=== PATIENT | female | born 1965 | race Caucasian/White ===

== ENCOUNTER → 2016-06-10 10:49 | Outpatient (CLI) | payer MEDICARE ==
[2016-01-15 11:12] VITALS: BMI 39.3
[~2016-06-10 10:49] MED LIST: ALBUTEROL2.5 MG/3 M UPD; ASPIRIN325 MG PO; BAYER CHEWABLE81 MG PO; CHRONULAC30 ML PO; FLUTICASONE PRO16 GM NASAL; IBUPROFEN800 MG PO; IPRAT-ALBUT 0.5-3 ML UPD; K-DUR20 MEQ PO; LASIX40 MG PO; LEVAQUIN500 MG PO; LUNESTA3 MG PO; METOPROLOL TART50 MG PO; MUCINEX600 MG PO; OMEPRAZOLE20 M1 PO; OMNICEF300 MG PO; PHENERGAN25 M1 PO; PREVACID30 MG PO; PROAIR HFA8.5 GM INH; PROTONIX40 MG PO; ROBAXIN500 MG PO; SINGULAIR10 MG PO; SYMBICORT 16010.2 GM; SYNTHROID25 MCG PO; ULTRAM50 MG PO; VITAMIN D31000 UNIT PO; ZANAFLEX4 MG PO; ZITHROMAX250 MG PO; ZOLOFT50 MG PO
== END | disposition home or self-care (01) ==
LOC: D.RT 10:49
DX: J45.909 Unspecified asthma, uncomplicated (principal)

== ENCOUNTER → 2016-08-27 13:14 | Outpatient (CLI) | payer MEDICARE ==
[2016-01-15 11:12] VITALS: BMI 39.3
== END | disposition home or self-care (01) ==
LOC: D.RAD 13:00
DX: J44.9 Chronic obstructive pulmonary disease, unspecified (principal)

== ENCOUNTER → 2016-09-18 09:22 | Outpatient (CLI) | payer MEDICARE ==
[2016-01-15 11:12] VITALS: BMI 39.3
[2016-09-18 10:20] LABS: CREATININE - SERUM 1.1 mg/dL (0.6-1.3)
== END | disposition home or self-care (01) ==
LOC: D.CT 09:22
PROVIDERS: Internal Medicine Pulmonary Disease
DX: R91.1 Solitary pulmonary nodule (principal)

== ENCOUNTER 2016-10-02 09:01 | Outpatient (CLI) | payer MEDICARE ==
[~2016-10-02] VITALS: Ht 162.6 cm; Wt 109.1 kg
[2016-10-02] MEDS ORDERED: GLIMEPIRIDE2 MG PO (10:02)
[2016-10-02] MEDS ORDERED: LEVEMIR INJ FLE (10:02)
[2016-10-02] MEDS ORDERED: ZANAFLEX4 MG PO (10:03)
[2016-10-02] MEDS ORDERED: TOPAMAX50 MG PO (10:03)
[2016-10-02] MEDS ORDERED: K-DUR20 MEQ PO (10:04)
[2016-10-02] MEDS ORDERED: FUROSEMIDE40 MG PO (10:04)
[2016-10-02 10:15] VITALS: BP 128/63; Ht 162.6 cm; Wt 109.1 kg
[2016-10-02 10:35] LABS: BASOPHILS 0.5 % (0-2); EOSINOPHILS 5.5 % (0-7); HEMOGLOBIN 12.4 g/dL (12-16); IMMATURE GRANULOCYTES 0.3 % (0-5); MCH 29.4 pg (26.0-34.0); MCHC 32.6 g/dL (31.0-37.0); MEAN PLATELET VOLUME 10.5 fL (7.4-10.4); MONOCYTES 14.2 % (2-11); NEUTROPHILS 68.5 % (40-80); PLATELET COUNT 64 10x3/uL (130-400); RBC 4.22 10x6/uL (4.00-5.40); RDW 17.6 % (11.5-14.5); WBC 6.4 10x3/uL (4.8-10.8)
[2016-10-02 10:47] LABS: APTT 30.6 SECONDS (22.8-39.4); INR 1.2 (0.85-1.17); PROTIME 15.1 SECONDS (11.6-15.0)
--- NOTE | 2016-10-02 10:53 | NUR ---
1025-IV SITED TO R CHEST WITH 24G ANGIOCATH. 1046-IV PREOPS GIVEN, POSITIVE BLOOD RETURN TO IV PRIOR TO ADMINISTRATION. RT AT BEDSIDE.
[2016-10-02 11:20] LABS: PLATELET ESTIMATE DECREASED
--- NOTE | 2016-10-02 14:51 | NUR ---
1345 IV DC WITH CATHER TIP INTACT
--- NOTE | 2016-10-02 14:59 | NUR ---
1325 ULTRAM 50 MG GIVEN FOR BACK PAIN
[2016-10-03 18:07] LABS: ACID FAST SMEAR Negative (()); AFB SPECIMEN PROCESSING Concentration (())
[2016-10-05 11:10] LABS: FUNGUS STAIN Final report (())
== END 2016-10-02 14:30 | disposition home or self-care (01) ==
LOC: D.OPS 09:01
PROVIDERS: Internal Medicine Pulmonary Disease
DX: J18.8 Other pneumonia, unspecified organism (principal); T17.890A Other foreign object in other parts of respiratory tract causing asphyxiation, initial encounter; R07.89 Other chest pain; I11.0 Hypertensive heart disease with heart failure; I50.9 Heart failure, unspecified; E11.9 Type 2 diabetes mellitus without complications; M19.90 Unspecified osteoarthritis, unspecified site; R41.82 Altered mental status, unspecified; D69.6 Thrombocytopenia, unspecified; M06.9 Rheumatoid arthritis, unspecified; I25.10 Atherosclerotic heart disease of native coronary artery without angina pectoris; Z86.73 Personal history of transient ischemic attack (TIA), and cerebral infarction without residual deficits; I25.2 Old myocardial infarction; E03.9 Hypothyroidism, unspecified; K74.60 Unspecified cirrhosis of liver; Z87.891 Personal history of nicotine dependence; F12.90 Cannabis use, unspecified, uncomplicated

== ENCOUNTER → 2016-10-12 16:47 | Outpatient (CLI) | payer MEDICARE ==
[2016-10-02 10:15] VITALS: BMI 41.3
[~2016-10-12 16:47] MED LIST changes: +FUROSEMIDE40 MG PO; +GLIMEPIRIDE2 MG PO; +LEVEMIR INJ FLE; +TOPAMAX50 MG PO
== END | disposition home or self-care (01) ==
LOC: D.CT 10-09 13:30
DX: I63.139 Cerebral infarction due to embolism of unspecified carotid artery (principal); I10 Essential (primary) hypertension

== ENCOUNTER → 2016-12-18 13:16 | Outpatient (CLI) | payer MEDICARE ==
[2016-10-02 10:15] VITALS: BMI 41.3
[2016-12-18 14:30] LABS: BASOPHILS 0.1 % (0-2); EOSINOPHILS 3.2 % (0-7); HEMATOCRIT 36.2 % (36.0-48.0); HEMOGLOBIN 12.4 g/dL (12-16); IMMATURE GRANULOCYTES 0.3 % (0-5); LYMPHOCYTES 10.7 % (15-50); MCH 32.1 pg (26.0-34.0); MCHC 34.3 g/dL (31.0-37.0); MCV 93.8 fL (80.0-100.0); MEAN PLATELET VOLUME 11.3 fL (7.4-10.4); MONOCYTES 9.3 % (2-11); NEUTROPHILS 76.4 % (40-80); PLATELET COUNT 70 10x3/uL (130-400); RBC 3.86 10x6/uL (4.00-5.40); RDW 17.5 % (11.5-14.5); WBC 7.5 10x3/uL (4.8-10.8)
[2016-12-18 14:51] LABS: HEMOGLOBIN A1C 8.7 % (4.8-6.0)
[2016-12-18 14:54] LABS: ALBUMIN 2.6 g/dL (3.4-5.0); ANION GAP 9.2 mmol/L (8-16); BILIRUBIN - TOTAL 0.72 mg/dL (0.2-1.3); CALCIUM 7.7 mg/dL (8.5-10.1); CARBON DIOXIDE 26.2 mmol/L (21.0-32.0); CREATININE - SERUM 0.9 mg/dL (0.6-1.3); POTASSIUM - SERUM 4.4 mmol/L (3.5-5.1); PROTEIN - SERUM 6.4 g/dL (6.4-8.2); T4 THYROXINE 1.9 ug/dL (4.7-13.3); THYROID STIMULATING HORMONE 32.23 uIU/mL (0.36-3.74)
[2016-12-18 15:19] LABS: PLATELET ESTIMATE DECREASED
[2016-12-19 07:20] LABS: FOLATE (FOLIC ACID) - SERUM 8.8 ng/mL (>3.0)
== END | disposition home or self-care (01) ==
LOC: D.CN 12-16 13:30 → D.RAD 12-16 14:00 → D.LAB 12-16 14:30 → D.CN 13:16
PROVIDERS: Psychiatry & Neurology Neurology
DX: J44.9 Chronic obstructive pulmonary disease, unspecified (principal); E03.8 Other specified hypothyroidism; I63.132 Cerebral infarction due to embolism of left carotid artery; I10 Essential (primary) hypertension; R00.1 Bradycardia, unspecified

== ENCOUNTER → 2017-01-25 14:49 | Outpatient (CLI) | payer MEDICARE | END | disposition home or self-care (01) | LOC: D.RAD 14:49 | DX: R91.1 Solitary pulmonary nodule (principal) ==

== ENCOUNTER 2017-01-29 16:02 | Emergency (ER) | payer MEDICARE ==
[2016-10-02 10:15] VITALS: BMI 41.3
== END 2017-01-29 19:51 | disposition home or self-care (01) ==
LOC: D.ER 16:02
DX: I10 Essential (primary) hypertension (principal); Z86.73 Personal history of transient ischemic attack (TIA), and cerebral infarction without residual deficits; E11.9 Type 2 diabetes mellitus without complications; Z79.4 Long term (current) use of insulin; Z86.79 Personal history of other diseases of the circulatory system

== ENCOUNTER → 2017-03-03 09:12 | Outpatient (CLI) | payer MEDICARE ==
[2016-10-02 10:15] VITALS: BMI 41.3
[~2017-03-03 09:12] MED LIST changes: +BENZONATATE200 MG PO; +GLUCOPHAGE500 MG PO; +LEVAQUIN750 MG PO; +OMEPRAZOLE40 MG PO; +PEPCID AC20 MG PO; +SYNTHROID50 MCG PO
[2017-03-03 10:02] LABS: CREATININE - SERUM 0.8 mg/dL (0.6-1.3)
== END | disposition home or self-care (01) ==
LOC: D.LAB 09:00 → D.CT 10:00
PROVIDERS: Internal Medicine Pulmonary Disease
DX: R91.8 Other nonspecific abnormal finding of lung field (principal)

== ENCOUNTER 2017-04-10 15:36 | Emergency (ER) | payer MEDICARE ==
[2016-10-02 10:15] VITALS: BMI 41.3
[~2017-04-10 15:36] MED LIST changes: -BENZONATATE200 MG PO; -GLUCOPHAGE500 MG PO; -LEVAQUIN750 MG PO; -OMEPRAZOLE40 MG PO; -PEPCID AC20 MG PO; -SYNTHROID50 MCG PO
[2017-04-10 17:05] LABS: BASOPHILS 0.2 % (0-2); EOSINOPHILS 3.3 % (0-7); HEMOGLOBIN 12.1 g/dL (12-16); IMMATURE GRANULOCYTES 0.2 % (0-5); LYMPHOCYTES 13.3 % (15-50); MCHC 32.7 g/dL (31.0-37.0); MCV 100.8 fL (80.0-100.0); MEAN PLATELET VOLUME 12.2 fL (7.4-10.4); MONOCYTES 12.7 % (2-11); PLATELET COUNT 75 10x3/uL (130-400); RBC 3.67 10x6/uL (4.00-5.40); RDW 14.6 % (11.5-14.5); WBC 6.4 10x3/uL (4.8-10.8)
[2017-04-10 17:25] LABS: ALBUMIN 2.6 g/dL (3.4-5.0); ALKALINE PHOSPHATASE 216 U/L (46-116); ALT (SGPT) 17 U/L (10-68); BILIRUBIN - TOTAL 0.61 mg/dL (0.2-1.3); CALC OSMOLALITY 282 mosm/kg (275-300); CALCIUM 8.1 mg/dL (8.5-10.1); CARBON DIOXIDE 22.3 mmol/L (21.0-32.0); CHLORIDE - SERUM 110 mmol/L (98-107); CREATININE - SERUM 0.8 mg/dL (0.6-1.3); GLUCOSE 153 mg/dL (74-106); POTASSIUM - SERUM 4.4 mmol/L (3.5-5.1); PROTEIN - SERUM 5.9 g/dL (6.4-8.2); SODIUM 140 mmol/L (136-145); UREA NITROGEN 16 mg/dL (7-18); eGFR NON AFRICAN AMERICAN 81 mL/min (90-120)
[2017-04-10 17:28] LABS: NEUTROPHILS 70.3 % (40-80); PLATELET ESTIMATE DECREASED
[2017-04-10 18:05] LABS: UDS - AMPHET NEGATIVE QUAL (NEGATIVE); UDS - BARB NEGATIVE QUAL (NEGATIVE); UDS - BENZO NEGATIVE QUAL (NEGATIVE); UDS - COCAINE NEGATIVE QUAL (NEGATIVE); UDS - OPIATE NEGATIVE QUAL (NEGATIVE); UDS - PCP NEGATIVE QUAL (NEGATIVE); UDS - THC POSITIVE QUAL (NEGATIVE)
[2017-04-10 18:09] LABS: APPEARANCE CLOUDY (CLEAR); BILIRUBIN NEGATIVE (NEGATIVE); COLOR DK YELLOW (YELLOW); GLUCOSE NEGATIVE (NEGATIVE); KETONE NEGATIVE (NEGATIVE); NITRITE NEGATIVE (NEGATIVE); PROTEIN TRACE mg/dL (NEGATIVE); SPECIFIC GRAVITY 1.015 (1.005-1.020)
[2017-04-10 18:11] LABS: BACTERIA FEW /hpf (NONE SEEN)
[2017-04-10 18:42] LABS: CKMB 0.7 U/L (0.0-3.6); CREATINE KINASE 60 UL (21-215)
[2017-04-10 18:43] LABS: TROPONIN-I < 0.017 ng/mL (0.000-0.060)
== END 2017-04-10 19:43 | disposition home or self-care (01) ==
LOC: D.ER 15:36
PROVIDERS: Nurse Practitioner Family
DX: R55 Syncope and collapse (principal); I10 Essential (primary) hypertension; Z86.73 Personal history of transient ischemic attack (TIA), and cerebral infarction without residual deficits; E11.9 Type 2 diabetes mellitus without complications; Z79.4 Long term (current) use of insulin

== ENCOUNTER 2017-04-22 13:34 | Inpatient (IN) | payer MEDICARE ==
[~2017-04-22] VITALS: Ht 162.6 cm; Wt 98.8 kg
[2017-04-22 14:16] LABS: BASOPHILS 0.3 % (0-2); HEMOGLOBIN 13.8 g/dL (12-16); IMMATURE GRANULOCYTES 0.1 % (0-5); LYMPHOCYTES 12.8 % (15-50); MCH 33.4 pg (26.0-34.0); MCHC 34.5 g/dL (31.0-37.0); MCV 96.9 fL (80.0-100.0); MEAN PLATELET VOLUME 11.5 fL (7.4-10.4); MONOCYTES 12.6 % (2-11); NEUTROPHILS 71.2 % (40-80); PLATELET COUNT 78 10x3/uL (130-400); RBC 4.13 10x6/uL (4.00-5.40); RDW 14.6 % (11.5-14.5); WBC 6.9 10x3/uL (4.8-10.8)
[2017-04-22 14:30] LABS: ALBUMIN 3.2 g/dL (3.4-5.0); BILIRUBIN - TOTAL 1.07 mg/dL (0.2-1.3); CALCIUM 8.7 mg/dL (8.5-10.1); CARBON DIOXIDE 26.3 mmol/L (21.0-32.0); CREATININE - SERUM 0.9 mg/dL (0.6-1.3); POTASSIUM - SERUM 3.3 mmol/L (3.5-5.1); PROTEIN - SERUM 7.3 g/dL (6.4-8.2)
[2017-04-22 15:49] LABS: APPEARANCE CLOUDY (CLEAR); BILIRUBIN NEGATIVE (NEGATIVE); COLOR YELLOW (YELLOW); GLUCOSE NEGATIVE (NEGATIVE); KETONE NEGATIVE (NEGATIVE); NITRITE NEGATIVE (NEGATIVE); PROTEIN NEGATIVE (NEGATIVE); SPECIFIC GRAVITY 1.015 (1.005-1.020)
[2017-04-22 15:50] LABS: UDS - AMPHET NEGATIVE QUAL (NEGATIVE); UDS - BARB NEGATIVE QUAL (NEGATIVE); UDS - BENZO NEGATIVE QUAL (NEGATIVE); UDS - COCAINE NEGATIVE QUAL (NEGATIVE); UDS - OPIATE NEGATIVE QUAL (NEGATIVE); UDS - PCP NEGATIVE QUAL (NEGATIVE); UDS - THC POSITIVE QUAL (NEGATIVE)
[2017-04-22 15:53] LABS: AMORPHOUS SEDIMENT <1+ /lpf (NONE SEEN); BACTERIA MODERATE /hpf (NONE SEEN); EPITHELIAL CELLS 0-5 /hpf (0-5); MUCUS <1+ /lpf (NONE SEEN); RED CELLS - URINE >50 /hpf (0-5); WHITE CELLS - URINE 0-5 /hpf (0-5)
--- NOTE | 2017-04-22 20:45 | NUR ---
PT ARRIVED FROM ER VIA WHEELCHAIR, AWAKE, ALERT, DOES RESPOND VERBALLY APPROPRIATELY AT THIS TIME. I WAS TOLD IN REPORT THAT PT IS NONVERBAL, PICKS AT HER SKIN FREQUENTLY AND ONLY SMILES WHEN BEING TALKED TO OR ASKED QUESTIONS. PT IS CURRENTLY IN THE BATHROOM. I HAVE ASKED PT IF SHE NEEDS ANY ASSISTANCE, IN WHICH PT STATED VERBALLY THAT SHE WAS ALRIGHT AND DID NOT NEED ANY HELP AT THIS TIME. I WAS TOLD IN REPORT VIA MALINA RICHARDSON THAT PT HAS ALSO PULLED TWO OF HER IV'S OUT WHILE IN THE ER. WILL CONTINUE TO ORIENT PT TO THE NEED FOR AN IV AND CONTINUE TO MONITOR PT CLOSELY.
[2017-04-22 21:56] VITALS: BP 154/84
[2017-04-22] MEDS ORDERED: GLUCOPHAGE500 MG PO (23:22)
[2017-04-22] MEDS ORDERED: SYNTHROID50 MCG PO (23:26)
[2017-04-22] MEDS ORDERED: IBUPROFEN800 MG PO (23:28)
[2017-04-22] MEDS ORDERED: OMEPRAZOLE40 MG PO (23:28)
[2017-04-22] MEDS ORDERED: BENZONATATE200 MG PO (23:30)
[2017-04-22] MEDS ORDERED: PEPCID AC20 MG PO (23:31)
[2017-04-22 23:37] VITALS: BMI 36.1
--- NOTE | 2017-04-23 02:08 | NUR ---
PT HAS CALLED FREQUENTLY FOR FOOD AND BEVERAGES, DEMONSTRATES GREAT RESTLESSNESS, AND NOW ASKING ME TO REDO HER BED COVERS BECAUSE SHE HAS TWISTED THEM UP. I HAVE ALSO REMOVED PTS TELEMETRY R/T PT CONTINUALLY PULLING THE LEADS OFF. PT IS ASKING TO HAVE HER IV REMOVED. I HAVE EXPLAINED TO PT SEVERAL TIMES THAT WE CANNOT REMOVE THE IV CATH AT THIS TIME R/T MEDICATIONS THAT SHE IS RECEIVING PER THE PHYSICIAN ORDER. PT DEMONSTRATES INCREASED ANXIETY, AND IS ASKING FOR PAIN MEDICATION. I HAVE EXPLAINED THAT BECAUSE PT WAS BROUGHT IN FOR AMS CHANGES, NO PAIN MEDICATION WAS ORDERED. PT DENIES ANY OTHER NEEDS AT THIS TIME. WILL CONTINUE TO MONITOR CLOSELY.
--- NOTE | 2017-04-23 05:01 | NUR ---
PT RECEIVED A BATH BY DORY AND LINEN WAS CHANGED. PT HAS BEEN RESTING COMFORTABLY, NO NEEDS AT THIS TIME. CONTINUE TO MONITOR CLOSELY.
[2017-04-23 06:09] VITALS: BP 143/70
--- NOTE | 2017-04-23 07:18 | NUR ---
PT IN BED, IV OUT, PT STATED " IT JUST CAME OUT". REMOVED RT AC IV WITH TIP INTACT, PLACED 2X2 AND TAPE TO SITE. PT CONFUSED TO TIME AND SITUATION, RE-ORIENTED PT, INSULATION ESTIMATOR AT BEDSIDE TO DO VITAL SIGNS. BED LOW AND WHEELS LOCKED, BEDSIDE RAILS X2, AARTI MAT IN PLACE, CALL LIGHT IN REACH, NAD NOTED, WILL CONTINUE PLAN OF CARE.
[2017-04-23 08:43] VITALS: BP 133/79
[2017-04-23 13:12] VITALS: BP 173/82
[2017-04-23 13:23] VITALS: Ht 162.6 cm; Wt 98.8 kg
--- NOTE | 2017-04-23 14:37 | NUR ---
NEW IV STARTED TO RT UPPER ARM, X2 STICKS, PT TOLERATED PROCEDURE WELL. PT STILL CONFUSED TO TIME AND SITUATION, FAMILY AT BEDSIDE, NAD NOTED, WILL CONTINUE PLAN OF CARE.
--- NOTE | 2017-04-23 17:09 | NUR ---
RATIONAL FOR SCD'S EXPLAINED TO PT, PT REFUSED TO WEAR SCD'S AT THIS TIME.
[2017-04-23 17:17] VITALS: BP 137/62
--- NOTE | 2017-04-23 19:00 | NUR ---
PT NOTED TO BE VERY CONFUSED. SHE DOES NOT KNOW WHERE SHE IS. SHE DOES NOT KNOW THE MONTH, YEAR OR PRESIDENT. HER WORDS ARE SLIGHTLY SLURRED AND SHE IS LETHARGIC AND SLEEPY. PT'S AMMONIA LEVEL IS NOTED TO BE 117. RIGHT ARM SALINE LOC. RECEIVING LEVAQUIN FOR PNA. WILL CONT TO MONITOR.
[2017-04-23 22:00] VITALS: BP 133/53
[2017-04-24 00:36] VITALS: BP 165/87
[2017-04-24 05:11] VITALS: BP 139/78
--- NOTE | 2017-04-24 07:21 | NUR ---
PT CONTINUES TO BE CONFUSED, BED ALARM IN PLACED, COMMERCIAL LOAN ASSISTANT SOCKS ON FOR SAFETY. WILL CONT TO BE MONITORED.
--- NOTE | 2017-04-24 07:40 | NUR ---
ASSESSMENT COMPLETED. CONFUSED. SL TO RIGHT ARM. UP TO BATHROOM. DENIES ANY NEEDS. WILL MONITOR
[2017-04-24 09:19] VITALS: BP 166/79
[2017-04-24 12:08] VITALS: BP 146/89
--- NOTE | 2017-04-24 12:37 | NUR ---
UP ON SIDE OF BEAD. DENIES ANY NEEDS. WILL MONITOR
[2017-04-24 12:59] LABS: BASOPHILS 0.3 % (0-2); EOSINOPHILS 3.3 % (0-7); HEMATOCRIT 40.4 % (36.0-48.0); HEMOGLOBIN 13.7 g/dL (12-16); IMMATURE GRANULOCYTES 0.1 % (0-5); LYMPHOCYTES 15.2 % (15-50); MCH 32.9 pg (26.0-34.0); MCHC 33.9 g/dL (31.0-37.0); MCV 97.1 fL (80.0-100.0); MEAN PLATELET VOLUME 11.8 fL (7.4-10.4); MONOCYTES 14.9 % (2-11); NEUTROPHILS 66.2 % (40-80); PLATELET COUNT 66 10x3/uL (130-400); RBC 4.16 10x6/uL (4.00-5.40); RDW 14.9 % (11.5-14.5); WBC 6.9 10x3/uL (4.8-10.8)
[2017-04-24 13:13] LABS: ANION GAP 13.1 mmol/L (8-16); BILIRUBIN - DIRECT 0.36 mg/dL (0.00-0.30); BILIRUBIN - INDIRECT 0.82 mg/dL (0.00-1.00); BILIRUBIN - TOTAL 1.18 mg/dL (0.2-1.3); CALCIUM 8.7 mg/dL (8.5-10.1); CARBON DIOXIDE 22.1 mmol/L (21.0-32.0); POTASSIUM - SERUM 3.2 mmol/L (3.5-5.1)
[2017-04-24 17:07] VITALS: BP 142/76
--- NOTE | 2017-04-24 18:34 | NUR ---
UP TO BR. IV OUT. UNABLE TO RESTART TIMES 3. WILL ASK SOMEONE TO TRY. DENIES ANY NEEDS.
[2017-04-24 21:08] VITALS: BP 134/72
[2017-04-25 01:27] VITALS: BP 131/74
--- NOTE | 2017-04-25 04:00 | NUR ---
PT'S IV RESTARTED IN HER LEFT WRIST BY ABEBA RICHARDSON. IV ABX INFUSING WITHOUT ISSUE. WILL CONT TO MONITOR.
[2017-04-25 06:46] LABS: BASOPHILS 0.4 % (0-2); EOSINOPHILS 3.9 % (0-7); HEMATOCRIT 36.9 % (36.0-48.0); HEMOGLOBIN 12.7 g/dL (12-16); IMMATURE GRANULOCYTES 0.3 % (0-5); MCH 33.5 pg (26.0-34.0); MCHC 34.4 g/dL (31.0-37.0); MCV 97.4 fL (80.0-100.0); MEAN PLATELET VOLUME 11.5 fL (7.4-10.4); MONOCYTES 13.1 % (2-11); NEUTROPHILS 68.3 % (40-80); PLATELET COUNT 77 10x3/uL (130-400); RBC 3.79 10x6/uL (4.00-5.40); RDW 15.1 % (11.5-14.5); WBC 7.8 10x3/uL (4.8-10.8)
[2017-04-25 06:51] VITALS: BP 120/63
--- NOTE | 2017-04-25 07:18 | NUR ---
PT STATES THAT SHE TAKES INSULIN AND DIABETIC MEDS AT HOME. WILL PASS THIS ON TO DAY SHIFT NURSE TO ADDRESS HOME MEDS. PT'S MENTAL STATUS IS IMPROVING NOW THAT HER AMMONIA LEVEL IS 42 (WAS 117 ON ADMISSION) SINCE HER LACTULOSE HAS BEEN RESTARTED. WILL CONT TO MONITOR.
[2017-04-25 07:20] LABS: ALBUMIN 2.6 g/dL (3.4-5.0); ANION GAP 13.7 mmol/L (8-16); BILIRUBIN - TOTAL 0.8 mg/dL (0.2-1.3); CALCIUM 8.5 mg/dL (8.5-10.1); CARBON DIOXIDE 20.8 mmol/L (21.0-32.0); CREATININE - SERUM 0.9 mg/dL (0.6-1.3); POTASSIUM - SERUM 3.5 mmol/L (3.5-5.1); PROTEIN - SERUM 6.4 g/dL (6.4-8.2)
[2017-04-25 08:24] VITALS: BP 100/61
--- NOTE | 2017-04-25 09:15 | NUR ---
PT REFUSED HER LACTULOSE AND STATED SHE HAS HAD TOO MANY BOWEL MOVEMENTS AND CANT HANDLE IT TODAY, CURRENT AMMONIA LEVEL 42 WHICH IS MUCH IMPROVED FROM ADMISSION. WILL DISCUSS WITH PRIMARY. HELD PTS METOPROLOL R/T BP OF 100-61 AND BRADIC HR OF 58, WILL CTM. PT C/O NOT GETTING HER HOME MEDICATIONS AND ONE BEING INSULIN AND STATES SHE IS SUPPOSE TO CHECK HER SUGAR TID, WILL MAKE SURE PRIMARY IS AWARE AND SEE ABOUT HOME MEDICATION RESUMPTION. NO FURTHER NEEDS AT THIS TIME. CL IN REACH. WILL CPOC.
[2017-04-25 12:11] VITALS: BP 107/58
--- NOTE | 2017-04-25 13:42 | NUR ---
SPOKE TO ABOUT RESUMPTION OF HOME MEDS. PT MAY BE DISCHARGED TODAY THEY WILL LOOK OVER CHART AND COME DISCUSS WITH PT. PT VERBALIZED UNDERSTANDING NO FURTHER NEEDS AT THIS TIME.
--- NOTE | 2017-04-25 15:00 | NUR ---
HOME MEDICATIONS ORDERED HOWEVER PT WILL BE DISCHARGED, WILL DISCUSS WITH PT AND SEE IF SHE WANTS TO TAKE THEM OR NOT.
[2017-04-25] MEDS ORDERED: LEVAQUIN750 MG PO (15:27)
--- NOTE | 2017-04-25 16:45 | NUR ---
PT DEMANDING A PAIN MEDICATION OR MUSCLE RELAXER HOWEVER THOSE MEDICATIONS HAVE NOT BEEN ORDERED. DISCUSSED WITH PT AND SHE VERBALIZED UNDERSTANDING. NO FURTHER NEEDS AT THIS TIME. WILL CTM.
[2017-04-25 17:02] VITALS: BP 110/50
--- NOTE | 2017-04-25 18:20 | NUR ---
HOME MEDICATIONS NOT GIVEN PT IS GOING TO BE DISCHARGED AND HAS HER HOME MEDICATIONS. PT STATES SHE NEEDS HER HUSBBAND TO BE CALLED, WE CALLED HIM AND TRANSFERRED CALL TO HER. NO FURTHER NEEDS AT THIS TIME. AWAITING DISCHARGE PAPERS.
--- NOTE | 2017-04-25 20:24 | NUR ---
PT SHOWERED PRIOR TO DISCHARGE. IV TO LEFT WRIST REMOVED. ALL DISCHARGE PAPERWORK REVIEWED AND SIGNED BY PATIENT'S . PT TRANSPORTED TO PRIVATE CAR TO HOME IN CARE OF AND BROTHER IN LAW.
== END 2017-04-25 20:27 | disposition home or self-care (01) | DRG 190 ==
LOC: D.ER 13:34 → D.M2 19:11
PROVIDERS: Emergency Medicine; ADMIT Family Medicine
DX: J44.0 Chronic obstructive pulmonary disease with (acute) lower respiratory infection (principal); J18.9 Pneumonia, unspecified organism; E11.9 Type 2 diabetes mellitus without complications; I25.10 Atherosclerotic heart disease of native coronary artery without angina pectoris; I10 Essential (primary) hypertension; K21.9 Gastro-esophageal reflux disease without esophagitis; F12.20 Cannabis dependence, uncomplicated; F32.9 Major depressive disorder, single episode, unspecified; F41.9 Anxiety disorder, unspecified; D69.6 Thrombocytopenia, unspecified; Z86.73 Personal history of transient ischemic attack (TIA), and cerebral infarction without residual deficits

== ENCOUNTER 2017-07-16 19:24 | Inpatient (IN) | payer MEDICARE ==
[~2017-07-16] VITALS: Ht 162.6 cm; Wt 96.6 kg
[~2017-07-16 19:24] MED LIST changes: +BENZONATATE200 MG PO; +GLUCOPHAGE500 MG PO; +LEVAQUIN750 MG PO; +OMEPRAZOLE40 MG PO; +PEPCID AC20 MG PO; +SYNTHROID50 MCG PO
[2017-07-16 20:05] LABS: BASOPHILS 0.3 % (0-2); EOSINOPHILS 3.7 % (0-7); HEMATOCRIT 37.6 % (36.0-48.0); HEMOGLOBIN 12.7 g/dL (12-16); IMMATURE GRANULOCYTES 0.2 % (0-5); LYMPHOCYTES 9.9 % (15-50); MCH 32.9 pg (26.0-34.0); MCHC 33.8 g/dL (31.0-37.0); MCV 97.4 fL (80.0-100.0); MEAN PLATELET VOLUME 12.6 fL (7.4-10.4); MONOCYTES 11.9 % (2-11); PLATELET COUNT 106 10x3/uL (130-400); RBC 3.86 10x6/uL (4.00-5.40); RDW 14.4 % (11.5-14.5); WBC 8.8 10x3/uL (4.8-10.8)
[2017-07-16 20:17] LABS: ALBUMIN 2.9 g/dL (3.4-5.0); ANION GAP 11.5 mmol/L (8-16); BILIRUBIN - TOTAL 0.71 mg/dL (0.2-1.3); CARBON DIOXIDE 25.8 mmol/L (21.0-32.0); POTASSIUM - SERUM 3.3 mmol/L (3.5-5.1); PROTEIN - SERUM 6.9 g/dL (6.4-8.2)
[2017-07-16 22:15] LABS: APPEARANCE CLEAR (CLEAR); COLOR YELLOW (YELLOW)
[2017-07-16 22:16] LABS: BILIRUBIN NEGATIVE (NEGATIVE); GLUCOSE NEGATIVE (NEGATIVE); KETONE NEGATIVE (NEGATIVE); NITRITE NEGATIVE (NEGATIVE); PROTEIN NEGATIVE (NEGATIVE); SPECIFIC GRAVITY 1.025 (1.005-1.020); UROBILINOGEN NORMAL (NORMAL)
[2017-07-17] VITALS (48 sets, daily range): BP systolic 81–143; BP diastolic 40–80; Ht 162.6 cm; Wt 96.6 kg
[2017-07-17] MEDS ORDERED: BACLOFEN10 MG PO (04:50)
[2017-07-17] MEDS ORDERED: IPRAT-ALBUT 0.5-3 ML UPD (04:52)
[2017-07-17] MEDS ORDERED: HUMULIN R100 U/ML SC (04:56)
[2017-07-17] MEDS ORDERED: MELATONIN 3 MG1 TAB PO (04:59)
[2017-07-17] MEDS ORDERED: ZOFRAN4 MG PO (05:03)
[2017-07-17] MEDS ORDERED: PROAIR HFA8.5 GM INH (05:05)
[2017-07-17] MEDS ORDERED: VITAMIN D5000 UNIT PO (05:09)
[2017-07-17 08:21] LABS: BASOPHILS 0.3 % (0-2); EOSINOPHILS 3.8 % (0-7); IMMATURE GRANULOCYTES 0.2 % (0-5); MCH 32.4 pg (26.0-34.0); MCHC 33.3 g/dL (31.0-37.0); MCV 97.3 fL (80.0-100.0); MEAN PLATELET VOLUME 12.5 fL (7.4-10.4); NEUTROPHILS 68.7 % (40-80); PLATELET COUNT 85 10x3/uL (130-400); RBC 3.39 10x6/uL (4.00-5.40); RDW 14.3 % (11.5-14.5); WBC 8.7 10x3/uL (4.8-10.8)
[2017-07-17 08:49] LABS: ALBUMIN 2.4 g/dL (3.4-5.0); ALKALINE PHOSPHATASE 137 U/L (46-116); ALT (SGPT) 19 U/L (10-68); CALC OSMOLALITY 282 mosm/kg (275-300); CALCIUM 7.7 mg/dL (8.5-10.1); CARBON DIOXIDE 23.3 mmol/L (21.0-32.0); CHLORIDE - SERUM 109 mmol/L (98-107); CREATININE - SERUM 0.8 mg/dL (0.6-1.3); GLUCOSE 94 mg/dL (74-106); POTASSIUM - SERUM 3.1 mmol/L (3.5-5.1); PROTEIN - SERUM 5.5 g/dL (6.4-8.2); SODIUM 142 mmol/L (136-145); UREA NITROGEN 13 mg/dL (7-18); eGFR NON AFRICAN AMERICAN 80 mL/min (90-120)
[2017-07-17 11:55] LABS: CKMB 0.8 U/L (0.0-3.6); TROPONIN-I 0.018 ng/mL (0.000-0.060)
[2017-07-17 18:35] LABS: CKMB 0.9 U/L (0.0-3.6)
[2017-07-17 18:40] LABS: TROPONIN-I < 0.017 ng/mL (0.000-0.060)
[2017-07-17 23:33] LABS: CKMB 0.4 U/L (0.0-3.6)
[2017-07-17 23:35] LABS: TROPONIN-I < 0.017 ng/mL (0.000-0.060)
[2017-07-18] VITALS (14 sets, daily range): BP systolic 89–140; BP diastolic 53–104
[2017-07-18 04:02] LABS: ALBUMIN 2.2 g/dL (3.4-5.0); ALKALINE PHOSPHATASE 145 U/L (46-116); ALT (SGPT) 18 U/L (10-68); BILIRUBIN - TOTAL 0.51 mg/dL (0.2-1.3); CALC OSMOLALITY 282 mosm/kg (275-300); CALCIUM 8.2 mg/dL (8.5-10.1); CARBON DIOXIDE 22.7 mmol/L (21.0-32.0); CHLORIDE - SERUM 110 mmol/L (98-107); CREATININE - SERUM 0.7 mg/dL (0.6-1.3); GLUCOSE 137 mg/dL (74-106); POTASSIUM - SERUM 4.2 mmol/L (3.5-5.1); PROTEIN - SERUM 5.1 g/dL (6.4-8.2); SODIUM 141 mmol/L (136-145); UREA NITROGEN 13 mg/dL (7-18); eGFR NON AFRICAN AMERICAN > 90 mL/min (90-120)
[2017-07-18 06:47] LABS: APPEARANCE CLEAR (CLEAR); BILIRUBIN NEGATIVE (NEGATIVE); COLOR DK YELLOW (YELLOW); GLUCOSE NEGATIVE (NEGATIVE); KETONE SMALL mg/dL (NEGATIVE); NITRITE NEGATIVE (NEGATIVE); PROTEIN NEGATIVE (NEGATIVE); UROBILINOGEN NORMAL (NORMAL)
[2017-07-18 06:51] LABS: BACTERIA FEW /hpf (NONE SEEN); EPITHELIAL CELLS 0-5 /hpf (0-5); MUCUS >1+ /lpf (NONE SEEN); RED CELLS - URINE 0-5 /hpf (0-5); WHITE CELLS - URINE 0-5 /hpf (0-5)
[2017-07-19 04:30] VITALS: BP 93/52
[2017-07-19 06:15] LABS: BASOPHILS 0.4 % (0-2); EOSINOPHILS 5.2 % (0-7); HEMATOCRIT 31.8 % (36.0-48.0); HEMOGLOBIN 10.4 g/dL (12-16); IMMATURE GRANULOCYTES 0.2 % (0-5); LYMPHOCYTES 16.1 % (15-50); MCH 32.3 pg (26.0-34.0); MCHC 32.7 g/dL (31.0-37.0); MCV 98.8 fL (80.0-100.0); MEAN PLATELET VOLUME 11.9 fL (7.4-10.4); MONOCYTES 14.3 % (2-11); NEUTROPHILS 63.8 % (40-80); RBC 3.22 10x6/uL (4.00-5.40); RDW 14.4 % (11.5-14.5)
[2017-07-19 06:16] LABS: PLATELET COUNT 58 10x3/uL (130-400); WBC 4.8 10x3/uL (4.8-10.8)
[2017-07-19 06:57] LABS: ALKALINE PHOSPHATASE 129 U/L (46-116); ALT (SGPT) 20 U/L (10-68); BILIRUBIN - TOTAL 0.72 mg/dL (0.2-1.3); CALC OSMOLALITY 278 mosm/kg (275-300); CALCIUM 8.2 mg/dL (8.5-10.1); CARBON DIOXIDE 23.3 mmol/L (21.0-32.0); CHLORIDE - SERUM 110 mmol/L (98-107); CREATININE - SERUM 0.8 mg/dL (0.6-1.3); GLUCOSE 104 mg/dL (74-106); PROTEIN - SERUM 5.3 g/dL (6.4-8.2); SODIUM 140 mmol/L (136-145); UREA NITROGEN 13 mg/dL (7-18); eGFR NON AFRICAN AMERICAN 80 mL/min (90-120)
[2017-07-19 08:13] VITALS: BP 103/54
[2017-07-19 12:24] VITALS: BP 126/82
[2017-07-19 15:45] VITALS: BP 93/52
[2017-07-19 20:29] VITALS: BP 104/59
[2017-07-20 01:15] VITALS: BP 109/73
[2017-07-20 05:21] VITALS: BP 97/58
[2017-07-20 06:25] LABS: BASOPHILS 0.5 % (0-2); EOSINOPHILS 4.9 % (0-7); HEMATOCRIT 33.1 % (36.0-48.0); HEMOGLOBIN 10.9 g/dL (12-16); IMMATURE GRANULOCYTES 0.2 % (0-5); LYMPHOCYTES 12.7 % (15-50); MCH 32.6 pg (26.0-34.0); MCHC 32.9 g/dL (31.0-37.0); MCV 99.1 fL (80.0-100.0); MONOCYTES 14.4 % (2-11); NEUTROPHILS 67.3 % (40-80); PLATELET COUNT 55 10x3/uL (130-400); RBC 3.34 10x6/uL (4.00-5.40); RDW 14.6 % (11.5-14.5); WBC 4.3 10x3/uL (4.8-10.8)
[2017-07-20 06:40] LABS: CALC OSMOLALITY 282 mosm/kg (275-300); CALCIUM 7.9 mg/dL (8.5-10.1); CARBON DIOXIDE 22.7 mmol/L (21.0-32.0); CHLORIDE - SERUM 111 mmol/L (98-107); CREATININE - SERUM 0.6 mg/dL (0.6-1.3); GLUCOSE 119 mg/dL (74-106); POTASSIUM - SERUM 4.1 mmol/L (3.5-5.1); SODIUM 141 mmol/L (136-145); UREA NITROGEN 14 mg/dL (7-18); eGFR NON AFRICAN AMERICAN > 90 mL/min (90-120)
[2017-07-20 06:55] LABS: PLATELET ESTIMATE DECREASED
[2017-07-20 08:01] VITALS: BP 118/67
[2017-07-20 11:16] VITALS: BP 120/70
[2017-07-20 17:06] VITALS: BP 147/68
[2017-07-20 20:00] VITALS: BP 128/73
[2017-07-21] VITALS: BP 146/85
[2017-07-21 04:00] VITALS: BP 123/65
[2017-07-21 05:48] LABS: BASOPHILS 0.4 % (0-2); EOSINOPHILS 5.5 % (0-7); HEMATOCRIT 33.6 % (36.0-48.0); HEMOGLOBIN 10.9 g/dL (12-16); IMMATURE GRANULOCYTES 0.2 % (0-5); LYMPHOCYTES 13.6 % (15-50); MCH 32.3 pg (26.0-34.0); MCHC 32.4 g/dL (31.0-37.0); MCV 99.7 fL (80.0-100.0); MEAN PLATELET VOLUME 11.7 fL (7.4-10.4); MONOCYTES 13.4 % (2-11); NEUTROPHILS 66.9 % (40-80); PLATELET COUNT 64 10x3/uL (130-400); RBC 3.37 10x6/uL (4.00-5.40); RDW 14.7 % (11.5-14.5); WBC 4.9 10x3/uL (4.8-10.8)
[2017-07-21 05:58] LABS: CALC OSMOLALITY 282 mosm/kg (275-300); CALCIUM 7.9 mg/dL (8.5-10.1); CARBON DIOXIDE 22.7 mmol/L (21.0-32.0); CHLORIDE - SERUM 109 mmol/L (98-107); CREATININE - SERUM 0.7 mg/dL (0.6-1.3); POTASSIUM - SERUM 4.2 mmol/L (3.5-5.1); SODIUM 139 mmol/L (136-145); UREA NITROGEN 14 mg/dL (7-18); eGFR NON AFRICAN AMERICAN > 90 mL/min (90-120)
[2017-07-21 06:00] LABS: GLUCOSE 175 mg/dL (74-106)
[2017-07-21 07:58] VITALS: BP 145/75
[2017-07-21 11:34] VITALS: BP 125/64
== END 2017-07-21 14:12 | DRG 871 ==
LOC: D.ER 19:24 → D.M2 23:58 → D.MS 23:58 → D.ICU 23:58 → D.M2 07-18 15:26
PROVIDERS: Family Medicine; Internal Medicine Nephrology; Physician Assistant Medical
PROC: 0T9B70Z Drainage of Bladder with Drainage Device, Via Natural or Artificial Opening (ICD-10-PCS; principal; 2017-07-18)
DX: A41.9 Sepsis, unspecified organism (principal); J18.9 Pneumonia, unspecified organism; J44.0 Chronic obstructive pulmonary disease with (acute) lower respiratory infection; I95.9 Hypotension, unspecified; K74.60 Unspecified cirrhosis of liver; E11.9 Type 2 diabetes mellitus without complications; K21.9 Gastro-esophageal reflux disease without esophagitis; I25.10 Atherosclerotic heart disease of native coronary artery without angina pectoris; I34.0 Nonrheumatic mitral (valve) insufficiency; I10 Essential (primary) hypertension; Z86.73 Personal history of transient ischemic attack (TIA), and cerebral infarction without residual deficits

== ENCOUNTER 2017-10-14 18:16 | Observation (INO) | payer MEDICARE ==
[~2017-10-14] VITALS: Ht 160 cm; Wt 95.5 kg
[~2017-10-14 18:16] MED LIST changes: +BACLOFEN10 MG PO; +HUMULIN R100 U/ML SC; +MELATONIN 3 MG1 TAB PO; +VITAMIN D5000 UNIT PO; +ZOFRAN4 MG PO
[2017-10-14 20:33] LABS: BASOPHILS 0.7 % (0-2); EOSINOPHILS 6.7 % (0-7); HEMATOCRIT 30.2 % (36.0-48.0); HEMOGLOBIN 9.8 g/dL (12-16); IMMATURE GRANULOCYTES 0.2 % (0-5); LYMPHOCYTES 16.8 % (15-50); MCHC 32.5 g/dL (31.0-37.0); MCV 92.4 fL (80.0-100.0); MEAN PLATELET VOLUME 11.8 fL (7.4-10.4); MONOCYTES 13.3 % (2-11); NEUTROPHILS 62.3 % (40-80); RBC 3.27 10x6/uL (4.00-5.40); RDW 16.5 % (11.5-14.5); WBC 5.4 10x3/uL (4.8-10.8)
[2017-10-14 20:34] LABS: PLATELET COUNT 79 10x3/uL (130-400)
[2017-10-14 20:53] LABS: ALBUMIN 2.4 g/dL (3.4-5.0); ALKALINE PHOSPHATASE 150 U/L (46-116); ALT (SGPT) 24 U/L (10-68); BILIRUBIN - TOTAL 0.71 mg/dL (0.2-1.3); CALC OSMOLALITY 282 mosm/kg (275-300); CARBON DIOXIDE 24.3 mmol/L (21.0-32.0); CHLORIDE - SERUM 109 mmol/L (98-107); CREATININE - SERUM 0.8 mg/dL (0.6-1.3); MAGNESIUM - SERUM 1.7 mg/dL (1.8-2.4); POTASSIUM - SERUM 3.2 mmol/L (3.5-5.1); PROTEIN - SERUM 5.7 g/dL (6.4-8.2); SODIUM 141 mmol/L (136-145); UREA NITROGEN 17 mg/dL (7-18); eGFR NON AFRICAN AMERICAN 80 mL/min (90-120)
[2017-10-14 20:54] LABS: PLATELET ESTIMATE DECREASED
[2017-10-14 20:55] LABS: GLUCOSE 100 mg/dL (74-106)
[2017-10-14 21:20] VITALS: BP 101/49
[2017-10-14] MEDS ORDERED: PAXIL40 MG PO (21:49)
[2017-10-14] MEDS ORDERED: PHENERGAN25 M1 PO (21:50)
[2017-10-14] MEDS ORDERED: NEURONTIN 300300 MG PO (21:52)
[2017-10-14] MEDS ORDERED: ESGIC TABLET1 TAB PO (21:52)
[2017-10-14] MEDS ORDERED: GLIMEPIRIDE4 MG PO (21:52)
[2017-10-14] MEDS ORDERED: ARIPIPRAZOLE PO (21:54)
[2017-10-14 23:44] VITALS: BP 101/49; BMI 37.2
[2017-10-15 00:38] VITALS: BP 96/56
[2017-10-15] MEDS ORDERED: XIFAXAN550 MG PO (02:03)
[2017-10-15 02:21] LABS: APPEARANCE CLEAR (CLEAR); BILIRUBIN NEGATIVE (NEGATIVE); COLOR YELLOW (YELLOW); GLUCOSE NEGATIVE (NEGATIVE); KETONE NEGATIVE (NEGATIVE); NITRITE NEGATIVE (NEGATIVE); PROTEIN NEGATIVE (NEGATIVE); SPECIFIC GRAVITY 1.015 (1.005-1.020); UROBILINOGEN NORMAL (NORMAL)
[2017-10-15 02:27] LABS: UDS - AMPHET NEGATIVE QUAL (NEGATIVE); UDS - BARB POSITIVE QUAL (NEGATIVE); UDS - BENZO NEGATIVE QUAL (NEGATIVE); UDS - COCAINE NEGATIVE QUAL (NEGATIVE); UDS - OPIATE NEGATIVE QUAL (NEGATIVE); UDS - PCP NEGATIVE QUAL (NEGATIVE); UDS - THC POSITIVE QUAL (NEGATIVE)
[2017-10-15 05:04] VITALS: BP 108/54
[2017-10-15 08:43] VITALS: BP 99/58
[2017-10-15 13:00] VITALS: BP 117/67
[2017-10-15 13:17] VITALS: Ht 160 cm; Wt 95.5 kg
[2017-10-15 16:08] VITALS: BP 107/56
== END 2017-10-15 18:40 | disposition home or self-care (01) ==
LOC: D.MS 18:16 → OBSVTIME 20:09 → D.MS 10-15 18:40
PROVIDERS: Family Medicine
DX: G93.40 Encephalopathy, unspecified (principal); K74.60 Unspecified cirrhosis of liver; I10 Essential (primary) hypertension; E78.5 Hyperlipidemia, unspecified; K21.9 Gastro-esophageal reflux disease without esophagitis; E11.9 Type 2 diabetes mellitus without complications; J44.9 Chronic obstructive pulmonary disease, unspecified; G47.33 Obstructive sleep apnea (adult) (pediatric); G40.909 Epilepsy, unspecified, not intractable, without status epilepticus

== ENCOUNTER 2017-10-21 21:10 | Inpatient (IN) | payer MEDICARE ==
[~2017-10-21] VITALS: Ht 160 cm; Wt 90.0 kg
--- NOTE | ~2017-10-21 | OP ---
PATIENT NAME: RADHA MALAVE MEDICAL RECORD: [id number] :69 LOCATION:[facility] ADMISSION DATE:10/22/17 SURGEON: KARISHMA RAMOS MD DATE OF OPERATION: PREOPERATIVE DIAGNOSES: 1. Lack of adequate peripheral IV access. 2. Pneumonia. 3. Pleural effusion. POSTOPERATIVE DIAGNOSES: 1. Lack of adequate peripheral IV access. 2. Pneumonia. 3. Pleural effusion. PROCEDURE: Insertion of right neck 16-cm triple lumen central venous catheter. SURGEON: Karishma Ramos MD ROAD GRADER: None. BLOOD LOSS: Minimal. ANESTHESIA: Local. COMPLICATIONS: None. The entire procedure was performed in the presence of a female nurse. A consent form was signed. OPERATIVE COURSE: The patient was seen in her med/surg bed. She was positioned in the Trendelenburg position. The right neck was sterilely prepped and draped as was the right supraclavicular fossa. A local anesthetic was used to infiltrate the skin and subcutaneous tissues at the base of the right neck. The right subclavian vein was percutaneously accessed in an antegrade fashion utilizing a supraclavicular technique. A guidewire passed easily. A small skin amanda was accomplished. A vessel dilator was used to dilate a subcutaneous tract. A 16-cm triple lumen central venous catheter was inserted to the hub. It was sutured in place times 3. All lumens flushed easily and aspirated dark, nonpulsatile blood. A stat portable chest x-ray is pending. The site was sterilely dressed. TRANSINT:[id number] Voice Confirmation ID: [id number] DOCUMENT ID: [id number] KARISHMA RAMOS MD at 1717 CC: TODD VAIL [id number] DICTATION DATE: 11/25/17 173 SUPERINTENDENT STATIONS: 11/25/17 1853 DIS IN 12/01/17 [id number] [place] [address]
--- NOTE | ~2017-10-21 | OP ---
PATIENT NAME: RADHA MALAVE MEDICAL RECORD: [id number] :69 LOCATION:[facility] ADMISSION DATE:10/22/17 SURGEON: SEYMOUR NETTLES MD DATE OF OPERATION: 11/08/2017 SURGEON: Seymour Nettles MD PROCEDURE PERFORMED: Right ultrasound-guided thoracentesis. DESCRIPTION OF THE PROCEDURE: With the patient at bedside seated upright and with a pulse oximetry monitored, the ultrasound was used to obtain a window for aspiration at the right posterior chest. The area was sterilely prepped and draped. Local anesthetic was used and the effusion was localized. Then, a 2 mm skin incision was made. The catheter was inserted without difficulty. A total of 2300 cc of serous fluid were removed. Some sent for cultures and cell counts and chemistries. There were no apparent complications although the patient did complain of pain. There was no residual fluid by ultrasound. TRANSINT:[id number] Voice Confirmation ID: [id number] DOCUMENT ID: [id number] SEYMOUR NETTLES MD at 1505 CC: OFE MELENDEZ MD [id number] DICTATION DATE: 11/08/171946 SHAKER WASHER: 11/08/175 ADM IN [id number] [place] [address]
--- NOTE | ~2017-10-21 | CN ---
PATIENT NAME:RADHA TORRES MEDICAL RECORD: [id number] : 69 LOCATION:[facility] ADMIT DATE: 10/22/17 ACCOUNT: [id number] CONSULTING PHYSICIAN: MARCIE CARIAS MD REFERRING PHYSICIAN: IRINA VAIL MD DATE OF CONSULTATION: 10/22/2017 CONSULT REQUESTING PHYSICIAN: Irina Vail MD REASON FOR CONSULTATION: Pneumonia, right-sided pleural effusion. HISTORY OF PRESENT ILLNESS: Ms. Torres is a 52-year-old female. Now, she is very sleepy and lethargic. The history was taken mainly by talking to the nursing staff, ANP and the patient's chart. The patient came into the ER yesterday complaining of right-sided chest pain. Also, she has shortness of breath. Workup showed pneumonia and her ammonia level was above 100. She was having CTA of the chest today, was negative for the PE, but she has a large right-sided pleural effusion with some compressive atelectasis. REVIEW OF SYSTEMS: Mainly in the history of present illness. PAST MEDICAL HISTORY: 1. History of cerebrovascular accident. 2. Seizure disorder. 3. Diabetes mellitus. 4. Hypothyroidism. 5. Hypertension. 6. History of myocardial infarction. 7. COPD. 8. Asthma. 9. Pneumonia. 10. Chronic hypoxic respiratory failure, on BiPAP at home. 11. Cirrhosis of liver. 12. Anxiety, depression. PAST SURGICAL HISTORY: She has; 1. Cholecystectomy. 2. Back surgery. 3. . 4. Foot and arm surgery. 5. Hysterectomy. ALLERGIES: SHE IS ALLERGIC TO MACRODANTIN, PENICILLIN, SULFA, TETANUS, ADHESIVE, CODEINE, DOXYCYCLINE, HYDROCODONE, AND LATEX. MEDICATIONS: She is on Rocephin IV, Zithromax IV and lactulose. Her other medication is reviewed. PERSONAL AND SOCIAL HISTORY: The patient is an ex-smoker. She is a nondrinker. FAMILY HISTORY: Noncontributory. PHYSICAL EXAMINATION: GENERAL: Now, the patient is sitting in bed. She is not in acute distress, but the patient is a bit confused and lethargic. CONSULT REPORT [id number] RADHA TORRES VITAL SIGNS: The blood pressure is 82-100/60, pulse is 61, respirations 14, temperature 97.2, SpO2 99% on 2 liters nasal cannula. HEENT: Conjunctivae are pink. Sclerae are not icteric. NECK: Supple, no JVD. CHEST: The chest excursion is minimal on the right side. There is dullness on percussion with absent breath sounds. HEART: Rhythm regular, normal sound, no murmur. ABDOMEN: Soft. Distended. Bowel sounds are present. RECTAL: Deferred. EXTREMITIES: No cyanosis, no clubbing. There is 1+ pedal edema. SKIN: Warm, normal turgor. CENTRAL NERVOUS SYSTEM: The patient is very sleepy and lethargic, but she is arousable. OTHER LABORATORY DATA: CBC; the WBC is 7.5, hemoglobin 3.35, hemoglobin is 10, hematocrit 30.7, the platelet count is 100. Chemistry; sodium 144, potassium is 3.6, chloride 111, BUN is 16, creatinine is 0.8, glucose is 83. The ammonia level is 101. Liver enzymes are within normal range. IMPRESSION: 1. Kcwmn-rr-[id number] hypoxic respiratory failure. 2. Pneumonia, right lower lobe, most likely community-acquired pneumonia. 3. Associated compressive atelectasis. 4. Large right pleural effusion. 5. Acute exacerbation of chronic obstructive pulmonary disease. 6. Hepatic encephalopathy. 7. Cirrhosis of liver. 8. Possible obstructive sleep apnea. 9. Congestive heart failure. RECOMMENDATION: 1. Continue Zithromax and Rocephin IV. 2. Supplemental oxygen. 3. Lactulose. 4. Follow up ammonia level. 5. We will proceed with right-sided thoracentesis. 6. Follow up labs and chest radiograph. The pleural effusion is most likely parapneumonic, may be related to cirrhosis of liver, but it is unilateral. Dr. Vail, thank you for involving me in the care of Ms. Torres. TRANSINT:[id number] Voice Confirmation ID: [id number] DOCUMENT ID: [id number] MARCIE CARIAS MD at 1348 CC: [id number] DICTATION DATE: 10/22/17 1458 MANAGER CORPORATE RESPONSIBILITY: 10/22/17 1543 ADM IN [id number] [place] [address]
--- NOTE | ~2017-10-21 | CN ---
PATIENT NAME:RADHA MALAVE MEDICAL RECORD: [id number] : 69 LOCATION:[facility] ADMIT DATE: 10/22/17 ACCOUNT: [id number] CONSULTING PHYSICIAN: IDA MEDRANO MD REFERRING PHYSICIAN: TODD VAIL MD DATE OF CONSULTATION: 10/26/2017 DIAGNOSES: 1. Chest pain compatible with angina. 2. Pneumonia. 3. Recent pleural effusion evacuation - thoracentesis. 4. Obesity. 5. Chronic obstructive pulmonary disease. 6. Hypertension. HISTORY OF PRESENT ILLNESS: This is a 52-year-old female, who is unsure of her cardiac history, who was admitted with a right-sided pleural effusion and pneumonia, has been treated for this. She had thoracentesis. She began having left-sided chest pain, relieved with nitro. She is on nitropatch. She has not had any further episodes of chest pain. Her EKG is with nonspecific ST-T abnormalities with the pain, but no acute changes. She had a cardiac catheterization by Dr. Garcia a number of years ago. She is not sure if she had a stent or not at that time or what the cardiac catheterization showed. She has been having episodes of chest pain leading up to this admission, mostly right-sided chest pain; however, and shortness of breath. Her troponin is normal. PHYSICAL EXAMINATION: GENERAL APPEARANCE: Well-nourished, well-developed, appears stated age. Level of distress, comfortable. PSYCHIATRIC: Mental status, alert, normal affect. Orientation, oriented to time, place and person. EYES: Lids and conjunctiva, noninjected. No discharge, no pallor. ENT: Lips, teeth, gums, normal dentition. Oropharynx, no cyanosis, no pallor. NECK: Carotid arteries, bilateral normal upstroke, no bruits, no thrills. JUGULAR VEINS: No jugular venous pressure or distention. CERVICAL LYMPH NODES: Nontender, nonenlarged. THYROID: Not enlarged. Nontender. No nodules. LUNGS: Respiratory effort, unlabored. CHEST: Normal curvature. No thoracic deformity. No chest wall tenderness. Percussion, resonant. Auscultation, clear. No wheezes, no rales, no rhonchi. CARDIOVASCULAR: Precordial exam, nondisplaced. No heaves or pericardial thrills. Rate and rhythm, regular. Heart sounds, normal S1, normal S2. No S3, no gallop, no rub. Systolic murmur, not heard. Diastolic murmur, not heard. EXTREMITIES: No cyanosis, no edema. Peripheral pulses, full and equal in all extremities, except as noted. No bruits appreciated. ABDOMEN: Soft, nondistended. Normal aorta. No bruit. Nontender. No masses. Liver, nontender, no hepatomegaly. Spleen, nontender, no splenomegaly. MUSCULOSKELETAL: No joint tenderness. No joint swelling. No erythema. NEUROLOGICAL: Normal gait, normal strength, normal tone. SKIN: Warm and dry. OVERALL IMPRESSION: Chest pain. Many atypical components, some typical components for this. At this time, her hemoglobin is quite low at 8.6. Creatinine is normal. Troponin is normal. Transfusion would help the chest CONSULT REPORT [id number] RADHA MALAVE Ramón pain, especially if it is ischemic in nature from a cardiac standpoint. We will see how she does. If she continues to have chest pain, would consider coronary angiography; however, with PICC line placement and transfusion hopefully the chest pain will resolve and no acute intervention will be needed at this time. TRANSINT:[id number] Voice Confirmation ID: [id number] DOCUMENT ID: [id number] IDA MEDRANO MD at 1710 CC: [id number] DICTATION DATE: 10/26/17906 SAMPLE DYE MIXER: 10/26/17 0948 ADM IN [facility] [address] [place] [address]
[~2017-10-21 21:10] MED LIST changes: +ARIPIPRAZOLE PO; +ESGIC TABLET1 TAB PO; +GLIMEPIRIDE4 MG PO; +NEURONTIN 300300 MG PO; +PAXIL40 MG PO; +XIFAXAN550 MG PO
[2017-10-21 22:20] LABS: BASOPHILS 0.3 % (0-2); EOSINOPHILS 2.5 % (0-7); HEMATOCRIT 30.7 % (36.0-48.0); IMMATURE GRANULOCYTES 0.1 % (0-5); LYMPHOCYTES 9.7 % (15-50); MCH 29.9 pg (26.0-34.0); MCHC 32.6 g/dL (31.0-37.0); MCV 91.6 fL (80.0-100.0); MEAN PLATELET VOLUME 12.2 fL (7.4-10.4); MONOCYTES 13.1 % (2-11); NEUTROPHILS 74.3 % (40-80); RBC 3.35 10x6/uL (4.00-5.40); RDW 16.2 % (11.5-14.5); WBC 7.5 10x3/uL (4.8-10.8)
[2017-10-21 22:23] LABS: PLATELET COUNT 100 10x3/uL (130-400)
[2017-10-21 22:42] LABS: ALBUMIN 2.5 g/dL (3.4-5.0); ALKALINE PHOSPHATASE 181 U/L (46-116); ALT (SGPT) 27 U/L (10-68); BILIRUBIN - TOTAL 0.61 mg/dL (0.2-1.3); CALC OSMOLALITY 282 mosm/kg (275-300); CALCIUM 8.6 mg/dL (8.5-10.1); CARBON DIOXIDE 24.2 mmol/L (21.0-32.0); CHLORIDE - SERUM 109 mmol/L (98-107); CREATININE - SERUM 0.9 mg/dL (0.6-1.3); GLUCOSE 93 mg/dL (74-106); POTASSIUM - SERUM 4.1 mmol/L (3.5-5.1); PROTEIN - SERUM 6.6 g/dL (6.4-8.2); SODIUM 142 mmol/L (136-145); UREA NITROGEN 13 mg/dL (7-18); eGFR NON AFRICAN AMERICAN 70 mL/min (90-120)
[2017-10-21 22:48] LABS: TROPONIN-I < 0.017 ng/mL (0.000-0.060)
[2017-10-22] VITALS (12 sets, daily range): BP systolic 82–125; BP diastolic 42–73; BMI 37.2
[2017-10-22 11:14] LABS: BASOPHILS 0.3 % (0-2); EOSINOPHILS 3.8 % (0-7); HEMATOCRIT 29.5 % (36.0-48.0); HEMOGLOBIN 9.4 g/dL (12-16); LYMPHOCYTES 15.7 % (15-50); MCH 29.4 pg (26.0-34.0); MCHC 31.9 g/dL (31.0-37.0); MCV 92.2 fL (80.0-100.0); MEAN PLATELET VOLUME 11.2 fL (7.4-10.4); MONOCYTES 13.8 % (2-11); NEUTROPHILS 66.4 % (40-80); PLATELET COUNT 85 10x3/uL (130-400); RDW 16.2 % (11.5-14.5); WBC 6.3 10x3/uL (4.8-10.8)
[2017-10-22 11:52] LABS: ALBUMIN 2.1 g/dL (3.4-5.0); ALKALINE PHOSPHATASE 145 U/L (46-116); ALT (SGPT) 21 U/L (10-68); CALC OSMOLALITY 286 mosm/kg (275-300); CALCIUM 7.9 mg/dL (8.5-10.1); CARBON DIOXIDE 26.5 mmol/L (21.0-32.0); CHLORIDE - SERUM 111 mmol/L (98-107); CREATININE - SERUM 0.8 mg/dL (0.6-1.3); GLUCOSE 83 mg/dL (74-106); POTASSIUM - SERUM 3.6 mmol/L (3.5-5.1); PROTEIN - SERUM 5.6 g/dL (6.4-8.2); SODIUM 144 mmol/L (136-145); UREA NITROGEN 16 mg/dL (7-18); eGFR NON AFRICAN AMERICAN 80 mL/min (90-120)
[2017-10-22 15:33] LABS: APTT 33.5 SECONDS (22.8-39.4); INR 1.31 (0.85-1.17); PROTIME 15.8 SECONDS (11.6-15.0)
[2017-10-22 19:32] LABS: EOS BF 8 %; MACROPHAGES BF 29 %; MESOTHELIALS BF 2 %; NEUT - BF 17 %
[2017-10-23] VITALS: BP 165/78
[2017-10-23 04:00] VITALS: BP 116/68
[2017-10-23 06:06] LABS: UDS - AMPHET NEGATIVE QUAL (NEGATIVE); UDS - BARB POSITIVE QUAL (NEGATIVE); UDS - BENZO POSITIVE QUAL (NEGATIVE); UDS - COCAINE NEGATIVE QUAL (NEGATIVE); UDS - OPIATE POSITIVE QUAL (NEGATIVE); UDS - PCP NEGATIVE QUAL (NEGATIVE); UDS - THC NEGATIVE QUAL (NEGATIVE)
[2017-10-23 08:45] VITALS: BP 132/44
[2017-10-23 10:39] LABS: BASOPHILS 0.3 % (0-2); HEMATOCRIT 35.3 % (36.0-48.0); IMMATURE GRANULOCYTES 0.1 % (0-5); MCH 30.1 pg (26.0-34.0); MCV 93.9 fL (80.0-100.0); MONOCYTES 13.5 % (2-11); NEUTROPHILS 77.1 % (40-80); RBC 3.76 10x6/uL (4.00-5.40); RDW 16.2 % (11.5-14.5)
[2017-10-23 10:41] LABS: HEMOGLOBIN 11.3 g/dL (12-16); PLATELET COUNT 107 10x3/uL (130-400); WBC 14.2 10x3/uL (4.8-10.8)
[2017-10-23 10:52] LABS: ALBUMIN 2.4 g/dL (3.4-5.0); ANION GAP 12.6 mmol/L (8-16); BILIRUBIN - TOTAL 0.65 mg/dL (0.2-1.3); CALCIUM 8.1 mg/dL (8.5-10.1); CARBON DIOXIDE 21.4 mmol/L (21.0-32.0); PROTEIN - SERUM 6.5 g/dL (6.4-8.2)
[2017-10-23 12:30] VITALS: BP 123/64
[2017-10-23 16:45] VITALS: BP 127/68
[2017-10-23 19:09] LABS: AFB SPECIMEN PROCESSING Not Indicated (())
[2017-10-23 20:00] VITALS: BP 144/62
[2017-10-23] MEDS ORDERED: ROBAXIN500 MG PO (22:54)
[2017-10-24] VITALS: BP 105/54
[2017-10-24 04:00] VITALS: BP 128/59
[2017-10-24 07:56] LABS: BASOPHILS 0.3 % (0-2); EOSINOPHILS 2.7 % (0-7); HEMATOCRIT 28.3 % (36.0-48.0); HEMOGLOBIN 9.1 g/dL (12-16); IMMATURE GRANULOCYTES 0.9 % (0-5); LYMPHOCYTES 9.8 % (15-50); MCH 29.4 pg (26.0-34.0); MCHC 32.2 g/dL (31.0-37.0); MEAN PLATELET VOLUME 12.5 fL (7.4-10.4); MONOCYTES 22.5 % (2-11); NEUTROPHILS 63.8 % (40-80); WBC 11.6 10x3/uL (4.8-10.8)
[2017-10-24 08:00] LABS: ALBUMIN 1.9 g/dL (3.4-5.0); ALKALINE PHOSPHATASE 157 U/L (46-116); ALT (SGPT) 22 U/L (10-68); BILIRUBIN - TOTAL 0.39 mg/dL (0.2-1.3); CALC OSMOLALITY 290 mosm/kg (275-300); CALCIUM 7.4 mg/dL (8.5-10.1); CARBON DIOXIDE 20.6 mmol/L (21.0-32.0); CHLORIDE - SERUM 112 mmol/L (98-107); GLUCOSE 242 mg/dL (74-106); PROTEIN - SERUM 5.2 g/dL (6.4-8.2); SODIUM 142 mmol/L (136-145); UREA NITROGEN 12 mg/dL (7-18)
[2017-10-24 08:01] LABS: CREATININE - SERUM 0.1 mg/dL (0.6-1.3); POTASSIUM - SERUM 4.9 mmol/L (3.5-5.1); eGFR NON AFRICAN AMERICAN > 90 mL/min (90-120)
[2017-10-24 08:03] LABS: MCV 91.3 fL (80.0-100.0); PLATELET COUNT 70 10x3/uL (130-400)
[2017-10-24 08:43] VITALS: BP 128/64
[2017-10-24 11:38] VITALS: BP 109/62
[2017-10-24 15:42] VITALS: BP 113/62
[2017-10-24 20:13] VITALS: BP 135/85
[2017-10-25] VITALS: BP 104/49
[2017-10-25 04:00] VITALS: BP 91/51
[2017-10-25 05:22] LABS: BASOPHILS 0.2 % (0-2); HEMATOCRIT 26.5 % (36.0-48.0); HEMOGLOBIN 8.5 g/dL (12-16); LYMPHOCYTES 10.6 % (15-50); MCH 29.5 pg (26.0-34.0); MCHC 32.1 g/dL (31.0-37.0); MEAN PLATELET VOLUME 11.7 fL (7.4-10.4); NEUTROPHILS 64.2 % (40-80); PLATELET COUNT 65 10x3/uL (130-400); RBC 2.88 10x6/uL (4.00-5.40); RDW 15.9 % (11.5-14.5); WBC 5.8 10x3/uL (4.8-10.8)
[2017-10-25 05:59] LABS: ALBUMIN 1.7 g/dL (3.4-5.0); ALKALINE PHOSPHATASE 134 U/L (46-116); ALT (SGPT) 21 U/L (10-68); BILIRUBIN - TOTAL 0.36 mg/dL (0.2-1.3); CALCIUM 7.4 mg/dL (8.5-10.1); CARBON DIOXIDE 23.1 mmol/L (21.0-32.0); CHLORIDE - SERUM 109 mmol/L (98-107); PROTEIN - SERUM 5.2 g/dL (6.4-8.2); SODIUM 139 mmol/L (136-145); UREA NITROGEN 10 mg/dL (7-18)
[2017-10-25 06:06] LABS: CALC OSMOLALITY 278 mosm/kg (275-300); CREATININE - SERUM 0.6 mg/dL (0.6-1.3); GLUCOSE 135 mg/dL (74-106); POTASSIUM - SERUM 3.3 mmol/L (3.5-5.1); eGFR NON AFRICAN AMERICAN > 90 mL/min (90-120)
[2017-10-25 08:25] VITALS: BP 119/58
[2017-10-25 11:49] VITALS: BP 102/67
[2017-10-25 16:43] VITALS: BP 102/57
[2017-10-25 20:00] VITALS: BP 126/65
[2017-10-26 00:08] VITALS: BP 126/63
[2017-10-26 02:02] LABS: CKMB 0.7 U/L (0.0-3.6); CREATINE KINASE 65 UL (21-215)
[2017-10-26 02:03] LABS: TROPONIN-I < 0.017 ng/mL (0.000-0.060)
[2017-10-26 04:00] VITALS: BP 99/48
[2017-10-26 07:08] LABS: BASOPHILS 0.4 % (0-2); EOSINOPHILS 7.2 % (0-7); HEMATOCRIT 27.2 % (36.0-48.0); HEMOGLOBIN 8.6 g/dL (12-16); IMMATURE GRANULOCYTES 0.2 % (0-5); LYMPHOCYTES 11.6 % (15-50); MCH 29.1 pg (26.0-34.0); MCHC 31.6 g/dL (31.0-37.0); MCV 91.9 fL (80.0-100.0); MEAN PLATELET VOLUME 11.7 fL (7.4-10.4); MONOCYTES 14.2 % (2-11); NEUTROPHILS 66.4 % (40-80); PLATELET COUNT 77 10x3/uL (130-400); RBC 2.96 10x6/uL (4.00-5.40); RDW 16.1 % (11.5-14.5); WBC 5.6 10x3/uL (4.8-10.8)
[2017-10-26 07:54] LABS: ALBUMIN 1.8 g/dL (3.4-5.0); ALKALINE PHOSPHATASE 161 U/L (46-116); ALT (SGPT) 27 U/L (10-68); BILIRUBIN - TOTAL 0.39 mg/dL (0.2-1.3); CALC OSMOLALITY 281 mosm/kg (275-300); CALCIUM 7.8 mg/dL (8.5-10.1); CHLORIDE - SERUM 109 mmol/L (98-107); CREATININE - SERUM 0.8 mg/dL (0.6-1.3); GLUCOSE 190 mg/dL (74-106); POTASSIUM - SERUM 3.2 mmol/L (3.5-5.1); PROTEIN - SERUM 5.5 g/dL (6.4-8.2); SODIUM 139 mmol/L (136-145); UREA NITROGEN 10 mg/dL (7-18); eGFR NON AFRICAN AMERICAN 80 mL/min (90-120)
[2017-10-26 07:55] LABS: CKMB 0.7 U/L (0.0-3.6); CREATINE KINASE 65 UL (21-215); TROPONIN-I < 0.017 ng/mL (0.000-0.060)
[2017-10-26 08:11] VITALS: BP 112/60
[2017-10-26 10:21] LABS: ANA REFLEX - ANTICHROMATIN ABS <0.2 AI (0.0-0.9); ANA REFLEX - CENTROMERE B ABS <0.2 AI (0.0-0.9); ANA REFLEX - DBL STRANDED DNA 10 IU/mL (0-9); ANA REFLEX - DIRECT Positive (Negative); ANA REFLEX - JO-1 AB <0.2 AI (0.0-0.9); ANA REFLEX - RNP ANTIBODIES <0.2 AI (0.0-0.9); ANA REFLEX - SCL-70 <0.2 AI (0.0-0.9); ANA REFLEX - SJOGRENS AB SSA <0.2 AI (0.0-0.9); ANA REFLEX - SJOGRENS AB SSB <0.2 AI (0.0-0.9); ANA REFLEX - SMITH AB <0.2 AI (0.0-0.9)
[2017-10-26 13:04] VITALS: BP 116/64
[2017-10-26 15:33] LABS: CREATINE KINASE 64 UL (21-215)
[2017-10-26 15:35] LABS: TROPONIN-I < 0.017 ng/mL (0.000-0.060)
[2017-10-26 16:55] VITALS: BP 125/68
[2017-10-26 20:00] VITALS: BP 125/85
[2017-10-27] VITALS: BP 143/89
[2017-10-27 04:00] VITALS: BP 153/85
[2017-10-27 06:25] LABS: BASOPHILS 0.4 % (0-2); EOSINOPHILS 5.9 % (0-7); HEMATOCRIT 31.4 % (36.0-48.0); HEMOGLOBIN 9.8 g/dL (12-16); IMMATURE GRANULOCYTES 0.2 % (0-5); LYMPHOCYTES 6.3 % (15-50); MCH 28.8 pg (26.0-34.0); MCHC 31.2 g/dL (31.0-37.0); MCV 92.4 fL (80.0-100.0); MEAN PLATELET VOLUME 10.5 fL (7.4-10.4); MONOCYTES 13.5 % (2-11); NEUTROPHILS 73.7 % (40-80); RDW 16.3 % (11.5-14.5)
[2017-10-27 06:26] LABS: PLATELET COUNT 102 10x3/uL (130-400); WBC 9.1 10x3/uL (4.8-10.8)
[2017-10-27 07:29] LABS: ALBUMIN 2.2 g/dL (3.4-5.0); ANION GAP 12.1 mmol/L (8-16); BILIRUBIN - TOTAL 0.6 mg/dL (0.2-1.3); CARBON DIOXIDE 21.4 mmol/L (21.0-32.0); CREATININE - SERUM 0.9 mg/dL (0.6-1.3); POTASSIUM - SERUM 3.5 mmol/L (3.5-5.1); PROTEIN - SERUM 6.2 g/dL (6.4-8.2)
[2017-10-27 08:17] VITALS: BP 161/89
[2017-10-27 12:18] LABS: FUNGUS STAIN Final report (())
[2017-10-27 12:57] VITALS: BP 128/71
[2017-10-27 15:06] LABS: HEMOGLOBIN 9.6 g/dL (12-16); MCH 29.6 pg (26.0-34.0); MCV 92.6 fL (80.0-100.0); MEAN PLATELET VOLUME 10.7 fL (7.4-10.4); RBC 3.24 10x6/uL (4.00-5.40); RDW 16.1 % (11.5-14.5); WBC 8.8 10x3/uL (4.8-10.8)
[2017-10-27 15:21] LABS: APTT 32.4 SECONDS (22.8-39.4); INR 1.29 (0.85-1.17); PROTIME 15.7 SECONDS (11.6-15.0)
[2017-10-27 15:28] LABS: APPEARANCE CLEAR (CLEAR); BILIRUBIN NEGATIVE (NEGATIVE); COLOR DK YELLOW (YELLOW); GLUCOSE 100 mg/dL (NEGATIVE); KETONE NEGATIVE (NEGATIVE); NITRITE NEGATIVE (NEGATIVE); PROTEIN NEGATIVE (NEGATIVE); SPECIFIC GRAVITY 1.025 (1.005-1.020); UROBILINOGEN NORMAL (NORMAL)
[2017-10-27 15:31] LABS: ALBUMIN 2.2 g/dL (3.4-5.0); ALKALINE PHOSPHATASE 215 U/L (46-116); ALT (SGPT) 38 U/L (10-68); BILIRUBIN - TOTAL 0.38 mg/dL (0.2-1.3); CALC OSMOLALITY 282 mosm/kg (275-300); CALCIUM 7.9 mg/dL (8.5-10.1); CARBON DIOXIDE 24.9 mmol/L (21.0-32.0); CHLORIDE - SERUM 110 mmol/L (98-107); CREATININE - SERUM 0.8 mg/dL (0.6-1.3); GLUCOSE 155 mg/dL (74-106); POTASSIUM - SERUM 3.5 mmol/L (3.5-5.1); PROTEIN - SERUM 5.9 g/dL (6.4-8.2); SODIUM 141 mmol/L (136-145); UREA NITROGEN 10 mg/dL (7-18); eGFR NON AFRICAN AMERICAN 80 mL/min (90-120)
[2017-10-27 15:38] VITALS: Ht 160 cm; Wt 90.0 kg
[2017-10-27 16:48] VITALS: BP 130/77
[2017-10-27 20:46] VITALS: BP 159/82
[2017-10-28 04:39] VITALS: BP 174/84
[2017-10-28 05:28] LABS: BASOPHILS 0.6 % (0-2); EOSINOPHILS 8.4 % (0-7); HEMATOCRIT 28.3 % (36.0-48.0); IMMATURE GRANULOCYTES 0.2 % (0-5); LYMPHOCYTES 13.6 % (15-50); MCH 29.3 pg (26.0-34.0); MCHC 31.8 g/dL (31.0-37.0); MCV 92.2 fL (80.0-100.0); MEAN PLATELET VOLUME 10.9 fL (7.4-10.4); MONOCYTES 12.8 % (2-11); NEUTROPHILS 64.4 % (40-80); PLATELET COUNT 83 10x3/uL (130-400); RBC 3.07 10x6/uL (4.00-5.40); RDW 16.3 % (11.5-14.5)
[2017-10-28 05:42] LABS: WBC 5.4 10x3/uL (4.8-10.8)
[2017-10-28 05:50] LABS: ALBUMIN 2.1 g/dL (3.4-5.0); ALKALINE PHOSPHATASE 197 U/L (46-116); ALT (SGPT) 37 U/L (10-68); CALC OSMOLALITY 285 mosm/kg (275-300); CALCIUM 8.2 mg/dL (8.5-10.1); CARBON DIOXIDE 23.4 mmol/L (21.0-32.0); CHLORIDE - SERUM 112 mmol/L (98-107); CREATININE - SERUM 0.8 mg/dL (0.6-1.3); GLUCOSE 144 mg/dL (74-106); SODIUM 143 mmol/L (136-145); UREA NITROGEN 8 mg/dL (7-18); eGFR NON AFRICAN AMERICAN 80 mL/min (90-120)
[2017-10-28 06:09] LABS: PROTEIN - SERUM 5.8 g/dL (6.4-8.2)
[2017-10-28 08:06] VITALS: BP 130/68
[2017-10-28 13:04] VITALS: BP 150/82
[2017-10-28 17:24] LABS: PROTEIN - BODY FLUID 0.3 G/DL
[2017-10-28 18:52] LABS: MACROPHAGES BF 13 %; MESOTHELIALS BF 22 %; NEUT - BF 19 %
[2017-10-28 22:09] VITALS: BP 106/64
[2017-10-29 04:55] VITALS: BP 124/64
[2017-10-29 08:32] VITALS: BP 120/75
[2017-10-29 11:44] VITALS: BP 146/66
[2017-10-29 11:52] LABS: BASOPHILS 0.5 % (0-2); EOSINOPHILS 5.1 % (0-7); HEMATOCRIT 31.8 % (36.0-48.0); HEMOGLOBIN 9.9 g/dL (12-16); IMMATURE GRANULOCYTES 0.2 % (0-5); LYMPHOCYTES 11.6 % (15-50); MCHC 31.1 g/dL (31.0-37.0); MCV 93.3 fL (80.0-100.0); MONOCYTES 14.4 % (2-11); NEUTROPHILS 68.2 % (40-80); PLATELET COUNT 95 10x3/uL (130-400); RBC 3.41 10x6/uL (4.00-5.40); RDW 16.6 % (11.5-14.5); WBC 6.6 10x3/uL (4.8-10.8)
[2017-10-29 12:05] LABS: ALBUMIN 2.3 g/dL (3.4-5.0); ANION GAP 12.8 mmol/L (8-16); BILIRUBIN - TOTAL 0.49 mg/dL (0.2-1.3); CALCIUM 8.3 mg/dL (8.5-10.1); CARBON DIOXIDE 23.6 mmol/L (21.0-32.0); CREATININE - SERUM 0.9 mg/dL (0.6-1.3); POTASSIUM - SERUM 3.4 mmol/L (3.5-5.1); PROTEIN - SERUM 6.3 g/dL (6.4-8.2)
[2017-10-29 16:17] VITALS: BP 126/80
[2017-10-29 19:56] VITALS: BP 123/64
[2017-10-30] VITALS: BP 153/77
[2017-10-30 04:06] VITALS: BP 127/53
[2017-10-30 08:02] VITALS: BP 127/82
[2017-10-30 08:47] LABS: BASOPHILS 0.5 % (0-2); EOSINOPHILS 5.2 % (0-7); HEMATOCRIT 32.3 % (36.0-48.0); HEMOGLOBIN 10.3 g/dL (12-16); IMMATURE GRANULOCYTES 0.1 % (0-5); LYMPHOCYTES 12.5 % (15-50); MCH 29.8 pg (26.0-34.0); MCHC 31.9 g/dL (31.0-37.0); MCV 93.4 fL (80.0-100.0); NEUTROPHILS 70.7 % (40-80); RBC 3.46 10x6/uL (4.00-5.40); RDW 16.8 % (11.5-14.5)
[2017-10-30 08:48] LABS: PLATELET COUNT 115 10x3/uL (130-400); WBC 8.6 10x3/uL (4.8-10.8)
[2017-10-30 08:54] LABS: ANION GAP 11.6 mmol/L (8-16); CALCIUM 8.2 mg/dL (8.5-10.1); CARBON DIOXIDE 22.8 mmol/L (21.0-32.0); POTASSIUM - SERUM 3.4 mmol/L (3.5-5.1)
[2017-10-30 11:53] VITALS: BP 110/78
[2017-10-30 16:12] VITALS: BP 147/99
[2017-10-30 19:59] VITALS: BP 147/75
[2017-10-31] VITALS: BP 107/68
[2017-10-31 04:00] VITALS: BP 110/63
[2017-10-31 07:14] LABS: ANION GAP 9.8 mmol/L (8-16); CALCIUM 8.2 mg/dL (8.5-10.1); CARBON DIOXIDE 23.3 mmol/L (21.0-32.0); CREATININE - SERUM 1.1 mg/dL (0.6-1.3); POTASSIUM - SERUM 3.1 mmol/L (3.5-5.1)
[2017-10-31 09:18] VITALS: BP 128/53; BP 155/50
[2017-10-31 13:25] VITALS: BP 129/60
[2017-10-31 16:20] VITALS: BP 106/64
[2017-10-31 20:00] VITALS: BP 156/60
[2017-11-01] VITALS (7 sets, daily range): BP systolic 98–155; BP diastolic 50–84
[2017-11-01 04:07] LABS: BASOPHILS 0.3 % (0-2); EOSINOPHILS 3.7 % (0-7); HEMATOCRIT 29.3 % (36.0-48.0); HEMOGLOBIN 9.1 g/dL (12-16); IMMATURE GRANULOCYTES 0.2 % (0-5); LYMPHOCYTES 14.3 % (15-50); MCH 29.1 pg (26.0-34.0); MCHC 31.1 g/dL (31.0-37.0); MCV 93.6 fL (80.0-100.0); MEAN PLATELET VOLUME 11.1 fL (7.4-10.4); MONOCYTES 15.5 % (2-11); RBC 3.13 10x6/uL (4.00-5.40); RDW 17.1 % (11.5-14.5)
[2017-11-01 04:12] LABS: PLATELET COUNT 82 10x3/uL (130-400)
[2017-11-01 04:28] LABS: ALBUMIN 2.3 g/dL (3.4-5.0); ANION GAP 7.8 mmol/L (8-16); BILIRUBIN - TOTAL 0.5 mg/dL (0.2-1.3); CALCIUM 7.9 mg/dL (8.5-10.1); CARBON DIOXIDE 25.5 mmol/L (21.0-32.0); POTASSIUM - SERUM 3.3 mmol/L (3.5-5.1); PROTEIN - SERUM 5.9 g/dL (6.4-8.2)
[2017-11-02 04:20] VITALS: BP 122/70
[2017-11-02 07:03] LABS: BASOPHILS 0.4 % (0-2); EOSINOPHILS 3.5 % (0-7); HEMATOCRIT 30.9 % (36.0-48.0); HEMOGLOBIN 9.6 g/dL (12-16); IMMATURE GRANULOCYTES 0.2 % (0-5); LYMPHOCYTES 14.2 % (15-50); MCH 29.2 pg (26.0-34.0); MCHC 31.1 g/dL (31.0-37.0); MCV 93.9 fL (80.0-100.0); MEAN PLATELET VOLUME 10.7 fL (7.4-10.4); MONOCYTES 11.3 % (2-11); NEUTROPHILS 70.4 % (40-80); PLATELET COUNT 75 10x3/uL (130-400); RBC 3.29 10x6/uL (4.00-5.40); RDW 17.4 % (11.5-14.5); WBC 5.5 10x3/uL (4.8-10.8)
[2017-11-02 07:20] LABS: APTT 37.4 SECONDS (22.8-39.4); INR 1.42 (0.85-1.17); PROTIME 16.8 SECONDS (11.6-15.0)
[2017-11-02 07:25] LABS: ALBUMIN 2.2 g/dL (3.4-5.0); ANION GAP 12.1 mmol/L (8-16); BILIRUBIN - TOTAL 0.6 mg/dL (0.2-1.3); CARBON DIOXIDE 23.3 mmol/L (21.0-32.0); CREATININE - SERUM 0.9 mg/dL (0.6-1.3); POTASSIUM - SERUM 3.4 mmol/L (3.5-5.1); PROTEIN - SERUM 5.9 g/dL (6.4-8.2)
[2017-11-02 09:08] VITALS: BP 118/76
[2017-11-02 18:43] LABS: MACROPHAGES BF 41 %; MESOTHELIALS BF 3 %; NEUT - BF 22 %
[2017-11-02 21:24] VITALS: BP 130/80
[2017-11-03 04:01] VITALS: BP 140/83
[2017-11-03 06:04] LABS: BASOPHILS 0.5 % (0-2); EOSINOPHILS 3.6 % (0-7); HEMOGLOBIN 9.7 g/dL (12-16); IMMATURE GRANULOCYTES 0.3 % (0-5); LYMPHOCYTES 11.9 % (15-50); MCH 29.1 pg (26.0-34.0); MCHC 31.3 g/dL (31.0-37.0); MCV 93.1 fL (80.0-100.0); MEAN PLATELET VOLUME 11.1 fL (7.4-10.4); MONOCYTES 11.9 % (2-11); NEUTROPHILS 71.8 % (40-80); PLATELET COUNT 78 10x3/uL (130-400); RBC 3.33 10x6/uL (4.00-5.40); RDW 17.2 % (11.5-14.5); WBC 6.1 10x3/uL (4.8-10.8)
[2017-11-03 06:16] LABS: INR 1.31 (0.85-1.17); PROTIME 15.9 SECONDS (11.6-15.0)
[2017-11-03 06:26] LABS: ALBUMIN 2.1 g/dL (3.4-5.0); ALKALINE PHOSPHATASE 204 U/L (46-116); ALT (SGPT) 18 U/L (10-68); BILIRUBIN - TOTAL 0.44 mg/dL (0.2-1.3); CALC OSMOLALITY 281 mosm/kg (275-300); CARBON DIOXIDE 22.5 mmol/L (21.0-32.0); CHLORIDE - SERUM 112 mmol/L (98-107); CREATININE - SERUM 0.8 mg/dL (0.6-1.3); GLUCOSE 153 mg/dL (74-106); POTASSIUM - SERUM 3.6 mmol/L (3.5-5.1); PROTEIN - SERUM 5.8 g/dL (6.4-8.2); SODIUM 141 mmol/L (136-145); UREA NITROGEN 7 mg/dL (7-18); eGFR NON AFRICAN AMERICAN 80 mL/min (90-120)
[2017-11-03 08:32] VITALS: BP 110/86
[2017-11-03 12:25] VITALS: BP 109/71
[2017-11-03 15:51] VITALS: BP 119/70
[2017-11-03 20:00] VITALS: BP 120/69
[2017-11-03 23:49] VITALS: BP 111/65
[2017-11-04 04:00] VITALS: BP 121/68
[2017-11-04 06:55] LABS: BASOPHILS 0.3 % (0-2); EOSINOPHILS 3.8 % (0-7); HEMATOCRIT 30.4 % (36.0-48.0); HEMOGLOBIN 9.6 g/dL (12-16); IMMATURE GRANULOCYTES 0.1 % (0-5); LYMPHOCYTES 12.1 % (15-50); MCH 29.2 pg (26.0-34.0); MCHC 31.6 g/dL (31.0-37.0); MCV 92.4 fL (80.0-100.0); MEAN PLATELET VOLUME 11.8 fL (7.4-10.4); MONOCYTES 13.7 % (2-11); PLATELET COUNT 69 10x3/uL (130-400); RBC 3.29 10x6/uL (4.00-5.40); RDW 17.1 % (11.5-14.5); WBC 6.9 10x3/uL (4.8-10.8)
[2017-11-04 07:28] LABS: ALBUMIN 2.1 g/dL (3.4-5.0); ALKALINE PHOSPHATASE 196 U/L (46-116); ALT (SGPT) 18 U/L (10-68); BILIRUBIN - TOTAL 0.67 mg/dL (0.2-1.3); CALC OSMOLALITY 286 mosm/kg (275-300); CALCIUM 7.6 mg/dL (8.5-10.1); CARBON DIOXIDE 23.5 mmol/L (21.0-32.0); CHLORIDE - SERUM 113 mmol/L (98-107); CREATININE - SERUM 0.7 mg/dL (0.6-1.3); GLUCOSE 134 mg/dL (74-106); POTASSIUM - SERUM 3.9 mmol/L (3.5-5.1); PROTEIN - SERUM 5.4 g/dL (6.4-8.2); SODIUM 144 mmol/L (136-145); UREA NITROGEN 7 mg/dL (7-18); eGFR NON AFRICAN AMERICAN > 90 mL/min (90-120)
[2017-11-04 08:25] VITALS: BP 126/72
[2017-11-04 12:38] VITALS: BP 126/79
[2017-11-04 19:43] VITALS: BP 141/84
[2017-11-05] VITALS: BP 117/72
[2017-11-05 08:17] VITALS: BP 144/74
[2017-11-05 09:07] LABS: BASOPHILS 0.4 % (0-2); EOSINOPHILS 2.5 % (0-7); HEMATOCRIT 35.5 % (36.0-48.0); HEMOGLOBIN 11.3 g/dL (12-16); IMMATURE GRANULOCYTES 0.1 % (0-5); LYMPHOCYTES 11.8 % (15-50); MCH 29.6 pg (26.0-34.0); MCHC 31.8 g/dL (31.0-37.0); MCV 92.9 fL (80.0-100.0); MEAN PLATELET VOLUME 11.2 fL (7.4-10.4); MONOCYTES 12.8 % (2-11); NEUTROPHILS 72.4 % (40-80); RBC 3.82 10x6/uL (4.00-5.40); RDW 17.1 % (11.5-14.5)
[2017-11-05 09:11] LABS: PLATELET COUNT 98 10x3/uL (130-400); WBC 9.9 10x3/uL (4.8-10.8)
[2017-11-05 09:28] LABS: ALBUMIN 2.5 g/dL (3.4-5.0); ANION GAP 12.7 mmol/L (8-16); BILIRUBIN - TOTAL 0.92 mg/dL (0.2-1.3); CALCIUM 8.1 mg/dL (8.5-10.1); CARBON DIOXIDE 22.5 mmol/L (21.0-32.0); CREATININE - SERUM 0.9 mg/dL (0.6-1.3); POTASSIUM - SERUM 3.2 mmol/L (3.5-5.1)
[2017-11-05 09:29] LABS: PROTEIN - SERUM 6.9 g/dL (6.4-8.2)
[2017-11-05 15:43] VITALS: BP 114/61; BP 119/74
[2017-11-05 20:00] VITALS: BP 116/74
[2017-11-06] VITALS: BP 139/64
[2017-11-06 07:17] LABS: BASOPHILS 0.4 % (0-2); EOSINOPHILS 3.1 % (0-7); HEMATOCRIT 32.8 % (36.0-48.0); HEMOGLOBIN 10.4 g/dL (12-16); IMMATURE GRANULOCYTES 0.1 % (0-5); LYMPHOCYTES 9.8 % (15-50); MCH 29.1 pg (26.0-34.0); MCHC 31.7 g/dL (31.0-37.0); MCV 91.6 fL (80.0-100.0); MEAN PLATELET VOLUME 10.7 fL (7.4-10.4); NEUTROPHILS 73.6 % (40-80); PLATELET COUNT 88 10x3/uL (130-400); RBC 3.58 10x6/uL (4.00-5.40); RDW 16.9 % (11.5-14.5); WBC 9.1 10x3/uL (4.8-10.8)
[2017-11-06 07:29] LABS: ALBUMIN 2.2 g/dL (3.4-5.0); ANION GAP 12.3 mmol/L (8-16); BILIRUBIN - TOTAL 0.72 mg/dL (0.2-1.3); CALCIUM 7.9 mg/dL (8.5-10.1); CARBON DIOXIDE 23.3 mmol/L (21.0-32.0); CREATININE - SERUM 0.9 mg/dL (0.6-1.3); POTASSIUM - SERUM 3.6 mmol/L (3.5-5.1); PROTEIN - SERUM 6.3 g/dL (6.4-8.2)
[2017-11-06 08:13] VITALS: BP 129/69
[2017-11-06 15:47] VITALS: BP 120/72
[2017-11-06 19:56] VITALS: BP 131/80
[2017-11-07 02:32] VITALS: BP 133/74
[2017-11-07 04:45] VITALS: BP 126/72
[2017-11-07 07:26] LABS: BASOPHILS 0.4 % (0-2); EOSINOPHILS 3.1 % (0-7); HEMATOCRIT 34.2 % (36.0-48.0); HEMOGLOBIN 10.9 g/dL (12-16); IMMATURE GRANULOCYTES 0.1 % (0-5); LYMPHOCYTES 12.5 % (15-50); MCH 28.8 pg (26.0-34.0); MCHC 31.9 g/dL (31.0-37.0); MCV 90.2 fL (80.0-100.0); NEUTROPHILS 71.9 % (40-80); PLATELET COUNT 83 10x3/uL (130-400); RBC 3.79 10x6/uL (4.00-5.40); RDW 16.6 % (11.5-14.5); WBC 7.3 10x3/uL (4.8-10.8)
[2017-11-07 07:28] LABS: ALBUMIN 2.5 g/dL (3.4-5.0); ALKALINE PHOSPHATASE 208 U/L (46-116); ALT (SGPT) 15 U/L (10-68); CALC OSMOLALITY 278 mosm/kg (275-300); CALCIUM 8.2 mg/dL (8.5-10.1); CARBON DIOXIDE 25.2 mmol/L (21.0-32.0); CHLORIDE - SERUM 108 mmol/L (98-107); CREATININE - SERUM 0.8 mg/dL (0.6-1.3); GLUCOSE 130 mg/dL (74-106); POTASSIUM - SERUM 3.3 mmol/L (3.5-5.1); PROTEIN - SERUM 6.6 g/dL (6.4-8.2); SODIUM 140 mmol/L (136-145); UREA NITROGEN 7 mg/dL (7-18); eGFR NON AFRICAN AMERICAN 80 mL/min (90-120)
[2017-11-07 08:00] VITALS: BP 119/66
[2017-11-07 12:22] VITALS: BP 125/70
[2017-11-07 19:35] VITALS: BP 136/84
[2017-11-07 23:17] VITALS: BP 118/68
[2017-11-08 04:20] VITALS: BP 132/63
[2017-11-08 06:06] LABS: HEMATOCRIT 29.3 % (36.0-48.0); HEMOGLOBIN 9.5 g/dL (12-16); LYMPHOCYTES 10.4 % (15-50); MCH 29.8 pg (26.0-34.0); MCHC 32.4 g/dL (31.0-37.0); MCV 91.8 fL (80.0-100.0); NEUTROPHILS 69.2 % (40-80); RBC 3.19 10x6/uL (4.00-5.40); WBC 7.3 10x3/uL (4.8-10.8)
[2017-11-08 06:20] LABS: INR 0.9 (0.85-1.17); PROTIME 11.8 SECONDS (11.6-15.0)
[2017-11-08 06:24] LABS: PLATELET COUNT 53 10x3/uL (130-400)
[2017-11-08 06:40] LABS: ALBUMIN 2.1 g/dL (3.4-5.0); ANION GAP 13.5 mmol/L (8-16); BILIRUBIN - TOTAL 0.56 mg/dL (0.2-1.3); CALCIUM 8.1 mg/dL (8.5-10.1); CARBON DIOXIDE 21.8 mmol/L (21.0-32.0); CREATININE - SERUM 0.9 mg/dL (0.6-1.3); PROTEIN - SERUM 5.4 g/dL (6.4-8.2)
[2017-11-08 06:47] LABS: POTASSIUM - SERUM 4.3 mmol/L (3.5-5.1)
[2017-11-08 08:46] VITALS: BP 98/68
[2017-11-08 12:14] VITALS: BP 118/64
[2017-11-08 19:48] LABS: PROTEIN - BODY FLUID 1.3 G/DL
[2017-11-08 21:06] VITALS: BP 142/74
[2017-11-08 21:14] LABS: EOS BF 3 %; MACROPHAGES BF 18 %; MESOTHELIALS BF 4 %; NEUT - BF 22 %
[2017-11-09 00:33] VITALS: BP 132/72
[2017-11-09 04:38] VITALS: BP 148/78
[2017-11-09 06:23] LABS: BASOPHILS 0.5 % (0-2); EOSINOPHILS 2.7 % (0-7); HEMOGLOBIN 10.9 g/dL (12-16); IMMATURE GRANULOCYTES 0.2 % (0-5); LYMPHOCYTES 11.6 % (15-50); MCH 28.8 pg (26.0-34.0); MCHC 31.1 g/dL (31.0-37.0); MCV 92.3 fL (80.0-100.0); MEAN PLATELET VOLUME 11.4 fL (7.4-10.4); MONOCYTES 13.1 % (2-11); NEUTROPHILS 71.9 % (40-80); RBC 3.79 10x6/uL (4.00-5.40); RDW 16.9 % (11.5-14.5)
[2017-11-09 06:40] LABS: PLATELET COUNT 116 10x3/uL (130-400); WBC 9.9 10x3/uL (4.8-10.8)
[2017-11-09 07:22] LABS: ALBUMIN 2.4 g/dL (3.4-5.0); ALKALINE PHOSPHATASE 188 U/L (46-116); ALT (SGPT) 14 U/L (10-68); BILIRUBIN - TOTAL 0.97 mg/dL (0.2-1.3); CARBON DIOXIDE 23.4 mmol/L (21.0-32.0); CHLORIDE - SERUM 110 mmol/L (98-107); CREATININE - SERUM 0.8 mg/dL (0.6-1.3); LDH 274 U/L (81-234); PROTEIN - SERUM 6.5 g/dL (6.4-8.2); SODIUM 144 mmol/L (136-145); UREA NITROGEN 9 mg/dL (7-18); eGFR NON AFRICAN AMERICAN 80 mL/min (90-120)
[2017-11-09 07:24] LABS: CALC OSMOLALITY 285 mosm/kg (275-300); GLUCOSE 96 mg/dL (74-106)
[2017-11-09 08:20] VITALS: BP 127/65
[2017-11-09 13:24] VITALS: BP 117/60
[2017-11-09 15:56] VITALS: BP 105/60
[2017-11-09 21:02] VITALS: BP 103/79
[2017-11-10 00:10] VITALS: BP 124/74
[2017-11-10 04:03] VITALS: BP 158/109
[2017-11-10 06:05] LABS: BASOPHILS 0.5 % (0-2); EOSINOPHILS 3.4 % (0-7); HEMATOCRIT 28.8 % (36.0-48.0); HEMOGLOBIN 8.8 g/dL (12-16); IMMATURE GRANULOCYTES 0.3 % (0-5); LYMPHOCYTES 11.3 % (15-50); MCH 28.5 pg (26.0-34.0); MCHC 30.6 g/dL (31.0-37.0); MCV 93.2 fL (80.0-100.0); MEAN PLATELET VOLUME 12.1 fL (7.4-10.4); MONOCYTES 17.7 % (2-11); NEUTROPHILS 66.8 % (40-80); RBC 3.09 10x6/uL (4.00-5.40)
[2017-11-10 06:29] LABS: PLATELET COUNT 53 10x3/uL (130-400); WBC 6.4 10x3/uL (4.8-10.8)
[2017-11-10 06:34] LABS: ALBUMIN 2.2 g/dL (3.4-5.0); BILIRUBIN - TOTAL 0.93 mg/dL (0.2-1.3); CALCIUM 7.9 mg/dL (8.5-10.1); CARBON DIOXIDE 25.3 mmol/L (21.0-32.0); POTASSIUM - SERUM 3.3 mmol/L (3.5-5.1)
[2017-11-10 08:33] VITALS: BP 105/62
[2017-11-10 12:01] VITALS: BP 119/69
[2017-11-10 13:10] LABS: FUNGUS STAIN Final report (())
[2017-11-10 16:08] VITALS: BP 146/93
[2017-11-10 18:07] LABS: AFB SPECIMEN PROCESSING Not Indicated (())
[2017-11-10 20:00] VITALS: BP 120/66
[2017-11-11] VITALS: BP 130/59
[2017-11-11 04:00] VITALS: BP 116/74
[2017-11-11 06:50] LABS: BASOPHILS 0.4 % (0-2); EOSINOPHILS 4.2 % (0-7); IMMATURE GRANULOCYTES 0.1 % (0-5); MCH 29.2 pg (26.0-34.0); MCHC 31.3 g/dL (31.0-37.0); MCV 93.2 fL (80.0-100.0); MEAN PLATELET VOLUME 11.7 fL (7.4-10.4); NEUTROPHILS 68.3 % (40-80); RDW 16.8 % (11.5-14.5)
[2017-11-11 06:58] LABS: ANION GAP 12.3 mmol/L (8-16); CALCIUM 8.2 mg/dL (8.5-10.1); CARBON DIOXIDE 23.2 mmol/L (21.0-32.0); MAGNESIUM - SERUM 1.7 mg/dL (1.8-2.4); PHOSPHOROUS 2.7 mg/dL (2.5-4.9); POTASSIUM - SERUM 3.5 mmol/L (3.5-5.1)
[2017-11-11 06:59] LABS: HEMATOCRIT 35.8 % (36.0-48.0); HEMOGLOBIN 11.2 g/dL (12-16); PLATELET COUNT 128 10x3/uL (130-400); RBC 3.84 10x6/uL (4.00-5.40); WBC 13.7 10x3/uL (4.8-10.8)
[2017-11-11 10:31] LABS: INR 1.67 (0.85-1.17); PROTIME 19.2 SECONDS (11.6-15.0)
[2017-11-11 12:02] VITALS: BP 115/67
[2017-11-11 16:25] VITALS: BP 108/60
[2017-11-11 20:00] VITALS: BP 111/50
[2017-11-12 04:00] VITALS: BP 134/70
[2017-11-12 06:31] LABS: BASOPHILS 0.6 % (0-2); EOSINOPHILS 3.6 % (0-7); HEMATOCRIT 30.6 % (36.0-48.0); HEMOGLOBIN 9.4 g/dL (12-16); IMMATURE GRANULOCYTES 0.3 % (0-5); LYMPHOCYTES 11.4 % (15-50); MCH 28.7 pg (26.0-34.0); MCHC 30.7 g/dL (31.0-37.0); MCV 93.3 fL (80.0-100.0); MEAN PLATELET VOLUME 11.6 fL (7.4-10.4); MONOCYTES 14.7 % (2-11); NEUTROPHILS 69.4 % (40-80); RBC 3.28 10x6/uL (4.00-5.40); RDW 16.8 % (11.5-14.5)
[2017-11-12 06:41] LABS: APTT 35.1 SECONDS (22.8-39.4); INR 1.54 (0.85-1.17)
[2017-11-12 06:47] LABS: PLATELET COUNT 80 10x3/uL (130-400)
[2017-11-12 06:56] LABS: ANION GAP 10.3 mmol/L (8-16); BILIRUBIN - TOTAL 0.66 mg/dL (0.2-1.3); CALCIUM 8.4 mg/dL (8.5-10.1); POTASSIUM - SERUM 3.3 mmol/L (3.5-5.1); PROTEIN - SERUM 5.7 g/dL (6.4-8.2)
[2017-11-12 08:58] VITALS: BP 105/63
[2017-11-12 16:06] VITALS: BP 128/72
[2017-11-12 20:00] VITALS: BP 90/46
[2017-11-13] VITALS: BP 94/55
[2017-11-13 04:00] VITALS: BP 114/56
[2017-11-13 04:58] LABS: BASOPHILS 0.2 % (0-2); HEMATOCRIT 36.7 % (36.0-48.0); IMMATURE GRANULOCYTES 0.1 % (0-5); LYMPHOCYTES 7.8 % (15-50); MCH 29.3 pg (26.0-34.0); MCHC 31.6 g/dL (31.0-37.0); MCV 92.7 fL (80.0-100.0); MEAN PLATELET VOLUME 11.6 fL (7.4-10.4); MONOCYTES 10.4 % (2-11); NEUTROPHILS 78.5 % (40-80)
[2017-11-13 05:03] LABS: HEMOGLOBIN 11.6 g/dL (12-16); PLATELET COUNT 106 10x3/uL (130-400); RBC 3.96 10x6/uL (4.00-5.40); WBC 10.1 10x3/uL (4.8-10.8)
[2017-11-13 05:07] LABS: INR 1.45 (0.85-1.17); PROTIME 17.2 SECONDS (11.6-15.0)
[2017-11-13 05:10] LABS: ALBUMIN 2.3 g/dL (3.4-5.0); ANION GAP 11.2 mmol/L (8-16); BILIRUBIN - TOTAL 1.01 mg/dL (0.2-1.3); CALCIUM 8.5 mg/dL (8.5-10.1); CARBON DIOXIDE 22.8 mmol/L (21.0-32.0); PROTEIN - SERUM 6.4 g/dL (6.4-8.2)
[2017-11-13 10:22] VITALS: BP 103/60
[2017-11-13 16:14] VITALS: BP 133/83
[2017-11-14 05:00] VITALS: BP 120/70
[2017-11-14 08:23] LABS: ANION GAP 9.1 mmol/L (8-16); CALCIUM 7.8 mg/dL (8.5-10.1); CARBON DIOXIDE 24.7 mmol/L (21.0-32.0); CREATININE - SERUM 0.9 mg/dL (0.6-1.3); POTASSIUM - SERUM 3.8 mmol/L (3.5-5.1)
[2017-11-14 08:38] VITALS: BP 100/64
[2017-11-14 12:09] VITALS: BP 147/66
[2017-11-14 20:00] VITALS: BP 127/74
[2017-11-15 05:04] VITALS: BP 107/78
[2017-11-15 09:28] VITALS: BP 108/65
[2017-11-15 10:46] VITALS: BP 128/65
[2017-11-15 10:59] LABS: BASOPHILS 0.3 % (0-2); EOSINOPHILS 5.3 % (0-7); HEMATOCRIT 36.3 % (36.0-48.0); HEMOGLOBIN 11.5 g/dL (12-16); IMMATURE GRANULOCYTES 0.2 % (0-5); LYMPHOCYTES 9.6 % (15-50); MCH 29.1 pg (26.0-34.0); MCHC 31.7 g/dL (31.0-37.0); MCV 91.9 fL (80.0-100.0); MEAN PLATELET VOLUME 11.2 fL (7.4-10.4); MONOCYTES 12.5 % (2-11); NEUTROPHILS 72.1 % (40-80); PLATELET COUNT 86 10x3/uL (130-400); RBC 3.95 10x6/uL (4.00-5.40); WBC 10.2 10x3/uL (4.8-10.8)
[2017-11-15 11:27] LABS: ALKALINE PHOSPHATASE 218 U/L (46-116); ALT (SGPT) 13 U/L (10-68); BILIRUBIN - TOTAL 0.61 mg/dL (0.2-1.3); CALC OSMOLALITY 271 mosm/kg (275-300); CALCIUM 8.1 mg/dL (8.5-10.1); CARBON DIOXIDE 24.7 mmol/L (21.0-32.0); CHLORIDE - SERUM 106 mmol/L (98-107); CREATININE - SERUM 0.8 mg/dL (0.6-1.3); GLUCOSE 139 mg/dL (74-106); POTASSIUM - SERUM 3.8 mmol/L (3.5-5.1); PROTEIN - SERUM 5.8 g/dL (6.4-8.2); SODIUM 136 mmol/L (136-145); UREA NITROGEN 8 mg/dL (7-18); eGFR NON AFRICAN AMERICAN 80 mL/min (90-120)
[2017-11-15 11:30] LABS: PLATELET ESTIMATE DECREASED
[2017-11-15 13:25] VITALS: BP 115/78
[2017-11-15 16:43] VITALS: BP 126/72
[2017-11-15 20:00] VITALS: BP 121/72
[2017-11-16 05:56] VITALS: BP 110/68
[2017-11-16 06:39] LABS: BASOPHILS 0.4 % (0-2); EOSINOPHILS 5.1 % (0-7); HEMATOCRIT 35.8 % (36.0-48.0); HEMOGLOBIN 11.6 g/dL (12-16); IMMATURE GRANULOCYTES 0.1 % (0-5); LYMPHOCYTES 10.2 % (15-50); MCH 29.1 pg (26.0-34.0); MCHC 32.4 g/dL (31.0-37.0); MEAN PLATELET VOLUME 11.6 fL (7.4-10.4); MONOCYTES 15.5 % (2-11); NEUTROPHILS 68.7 % (40-80); PLATELET COUNT 96 10x3/uL (130-400); RBC 3.98 10x6/uL (4.00-5.40); RDW 16.7 % (11.5-14.5); WBC 10.5 10x3/uL (4.8-10.8)
[2017-11-16 06:42] LABS: MCV 89.9 fL (80.0-100.0)
[2017-11-16 07:02] LABS: ANION GAP 7.9 mmol/L (8-16); BILIRUBIN - TOTAL 0.8 mg/dL (0.2-1.3); CALCIUM 7.7 mg/dL (8.5-10.1); CARBON DIOXIDE 25.8 mmol/L (21.0-32.0); CREATININE - SERUM 0.9 mg/dL (0.6-1.3); POTASSIUM - SERUM 3.7 mmol/L (3.5-5.1); PROTEIN - SERUM 5.5 g/dL (6.4-8.2)
[2017-11-16 08:05] VITALS: BP 99/61
[2017-11-16 11:41] VITALS: BP 127/77
[2017-11-16 15:48] VITALS: BP 111/68
[2017-11-16 21:09] VITALS: BP 122/76
[2017-11-17 04:00] VITALS: BP 102/69
[2017-11-17 04:33] LABS: BASOPHILS 0.4 % (0-2); EOSINOPHILS 2.9 % (0-7); HEMATOCRIT 38.5 % (36.0-48.0); HEMOGLOBIN 12.5 g/dL (12-16); IMMATURE GRANULOCYTES 0.2 % (0-5); LYMPHOCYTES 8.6 % (15-50); MCH 29.3 pg (26.0-34.0); MCHC 32.5 g/dL (31.0-37.0); MCV 90.2 fL (80.0-100.0); MEAN PLATELET VOLUME 12.3 fL (7.4-10.4); MONOCYTES 11.3 % (2-11); NEUTROPHILS 76.6 % (40-80); PLATELET COUNT 93 10x3/uL (130-400); RBC 4.27 10x6/uL (4.00-5.40); RDW 16.6 % (11.5-14.5)
[2017-11-17 04:49] LABS: ALBUMIN 2.2 g/dL (3.4-5.0); ANION GAP 12.6 mmol/L (8-16); BILIRUBIN - TOTAL 0.88 mg/dL (0.2-1.3); CARBON DIOXIDE 23.3 mmol/L (21.0-32.0); POTASSIUM - SERUM 3.9 mmol/L (3.5-5.1); PROTEIN - SERUM 5.9 g/dL (6.4-8.2)
[2017-11-17 08:28] VITALS: BP 110/65
[2017-11-17 12:08] VITALS: BP 129/75
[2017-11-17 16:09] VITALS: BP 105/70
[2017-11-17 17:39] LABS: INR 1.39 (0.85-1.17); PROTIME 16.6 SECONDS (11.6-15.0)
[2017-11-17 20:00] VITALS: BP 110/64
[2017-11-18] VITALS: BP 121/61
[2017-11-18 04:00] VITALS: BP 107/60
[2017-11-18 05:35] LABS: BASOPHILS 0.3 % (0-2); HEMATOCRIT 41.1 % (36.0-48.0); HEMOGLOBIN 13.4 g/dL (12-16); IMMATURE GRANULOCYTES 0.3 % (0-5); LYMPHOCYTES 5.8 % (15-50); MCH 29.2 pg (26.0-34.0); MCHC 32.6 g/dL (31.0-37.0); MCV 89.5 fL (80.0-100.0); MEAN PLATELET VOLUME 11.2 fL (7.4-10.4); MONOCYTES 13.8 % (2-11); NEUTROPHILS 78.8 % (40-80); RBC 4.59 10x6/uL (4.00-5.40); RDW 16.6 % (11.5-14.5); WBC 15.6 10x3/uL (4.8-10.8)
[2017-11-18 05:41] LABS: PLATELET COUNT 117 10x3/uL (130-400)
[2017-11-18 06:02] LABS: ALBUMIN 2.2 g/dL (3.4-5.0); ANION GAP 10.1 mmol/L (8-16); BILIRUBIN - TOTAL 1.03 mg/dL (0.2-1.3); CALCIUM 8.3 mg/dL (8.5-10.1); CARBON DIOXIDE 21.1 mmol/L (21.0-32.0); CREATININE - SERUM 1.2 mg/dL (0.6-1.3); POTASSIUM - SERUM 3.2 mmol/L (3.5-5.1); PROTEIN - SERUM 6.7 g/dL (6.4-8.2)
[2017-11-18 09:10] VITALS: BP 137/72
[2017-11-18 12:22] VITALS: BP 119/65
[2017-11-18 16:13] VITALS: BP 105/61
[2017-11-18 20:29] VITALS: BP 103/61
[2017-11-19 00:21] VITALS: BP 115/65
[2017-11-19 00:30] LABS: APPEARANCE HAZY (CLEAR); BILIRUBIN NEGATIVE (NEGATIVE); COLOR YELLOW (YELLOW); GLUCOSE NEGATIVE (NEGATIVE); KETONE NEGATIVE (NEGATIVE); NITRITE NEGATIVE (NEGATIVE); PH 5.5 (5.0-6.0); PROTEIN NEGATIVE (NEGATIVE); UROBILINOGEN NORMAL (NORMAL)
[2017-11-19 04:06] VITALS: BP 108/59
[2017-11-19 05:50] LABS: BASOPHILS 0.4 % (0-2); EOSINOPHILS 2.1 % (0-7); HEMOGLOBIN 10.8 g/dL (12-16); IMMATURE GRANULOCYTES 0.2 % (0-5); LYMPHOCYTES 9.4 % (15-50); MCH 28.7 pg (26.0-34.0); MCHC 32.7 g/dL (31.0-37.0); MCV 87.8 fL (80.0-100.0); MEAN PLATELET VOLUME 10.5 fL (7.4-10.4); MONOCYTES 12.9 % (2-11); RBC 3.76 10x6/uL (4.00-5.40); RDW 16.4 % (11.5-14.5); WBC 12.2 10x3/uL (4.8-10.8)
[2017-11-19 06:02] LABS: PLATELET COUNT 87 10x3/uL (130-400)
[2017-11-19 06:41] LABS: ALBUMIN 1.7 g/dL (3.4-5.0); ANION GAP 10.2 mmol/L (8-16); BILIRUBIN - TOTAL 0.86 mg/dL (0.2-1.3); CALCIUM 7.9 mg/dL (8.5-10.1); CARBON DIOXIDE 20.7 mmol/L (21.0-32.0); POTASSIUM - SERUM 3.9 mmol/L (3.5-5.1); PROTEIN - SERUM 5.2 g/dL (6.4-8.2)
[2017-11-19 09:23] VITALS: BP 99/58
[2017-11-19 17:00] VITALS: BP 97/58
[2017-11-19 19:59] VITALS: BP 108/58
[2017-11-19 23:24] VITALS: BP 117/63
[2017-11-20 03:50] VITALS: BP 100/55
[2017-11-20 06:27] LABS: BASOPHILS 0.3 % (0-2); EOSINOPHILS 3.3 % (0-7); HEMATOCRIT 34.7 % (36.0-48.0); HEMOGLOBIN 11.5 g/dL (12-16); IMMATURE GRANULOCYTES 0.1 % (0-5); LYMPHOCYTES 6.3 % (15-50); MCH 29.4 pg (26.0-34.0); MCHC 33.1 g/dL (31.0-37.0); MCV 88.7 fL (80.0-100.0); MEAN PLATELET VOLUME 11.2 fL (7.4-10.4); MONOCYTES 15.3 % (2-11); NEUTROPHILS 74.7 % (40-80); RBC 3.91 10x6/uL (4.00-5.40); WBC 14.4 10x3/uL (4.8-10.8)
[2017-11-20 06:36] LABS: PLATELET COUNT 106 10x3/uL (130-400)
[2017-11-20 06:50] LABS: ALBUMIN 1.8 g/dL (3.4-5.0); ANION GAP 9.8 mmol/L (8-16); CALCIUM 8.3 mg/dL (8.5-10.1); CARBON DIOXIDE 21.6 mmol/L (21.0-32.0); CREATININE - SERUM 1.1 mg/dL (0.6-1.3); POTASSIUM - SERUM 3.4 mmol/L (3.5-5.1); PROTEIN - SERUM 5.5 g/dL (6.4-8.2)
[2017-11-20 07:02] LABS: BILIRUBIN - TOTAL 0.59 mg/dL (0.2-1.3)
[2017-11-20 07:07] VITALS: BP 89/56
[2017-11-20 15:53] VITALS: BP 109/67
[2017-11-20 20:08] VITALS: BP 112/61
[2017-11-20 23:54] VITALS: BP 102/66
[2017-11-21 03:53] VITALS: BP 115/63
[2017-11-21 05:55] LABS: BASOPHILS 0.3 % (0-2); EOSINOPHILS 1.2 % (0-7); HEMATOCRIT 37.5 % (36.0-48.0); HEMOGLOBIN 12.4 g/dL (12-16); IMMATURE GRANULOCYTES 0.2 % (0-5); LYMPHOCYTES 6.5 % (15-50); MCH 29.3 pg (26.0-34.0); MCHC 33.1 g/dL (31.0-37.0); MCV 88.7 fL (80.0-100.0); MEAN PLATELET VOLUME 11.8 fL (7.4-10.4); MONOCYTES 14.5 % (2-11); NEUTROPHILS 77.3 % (40-80); PLATELET COUNT 115 10x3/uL (130-400); RBC 4.23 10x6/uL (4.00-5.40); RDW 17.1 % (11.5-14.5); WBC 16.2 10x3/uL (4.8-10.8)
[2017-11-21 06:19] LABS: ALBUMIN 1.8 g/dL (3.4-5.0); ANION GAP 10.9 mmol/L (8-16); BILIRUBIN - TOTAL 0.75 mg/dL (0.2-1.3); CALCIUM 8.7 mg/dL (8.5-10.1); CARBON DIOXIDE 16.5 mmol/L (21.0-32.0); CREATININE - SERUM 1.2 mg/dL (0.6-1.3); POTASSIUM - SERUM 3.4 mmol/L (3.5-5.1); PROTEIN - SERUM 5.6 g/dL (6.4-8.2)
[2017-11-21 08:06] VITALS: BP 98/64
[2017-11-21 11:46] VITALS: BP 110/69
[2017-11-21 16:32] VITALS: BP 122/77
[2017-11-21 20:01] VITALS: BP 122/77
[2017-11-22 03:45] VITALS: BP 150/81
[2017-11-22 06:44] LABS: HEMATOCRIT 42.4 % (36.0-48.0); HEMOGLOBIN 14.6 g/dL (12-16); MCHC 34.4 g/dL (31.0-37.0); MCV 87.2 fL (80.0-100.0); MEAN PLATELET VOLUME 11.1 fL (7.4-10.4); PLATELET COUNT 201 10x3/uL (130-400); RBC 4.86 10x6/uL (4.00-5.40); RDW 17.2 % (11.5-14.5)
[2017-11-22 07:24] LABS: ALBUMIN 2.2 g/dL (3.4-5.0); ANION GAP 15.5 mmol/L (8-16); BILIRUBIN - TOTAL 1.37 mg/dL (0.2-1.3); CALCIUM 9.5 mg/dL (8.5-10.1); CARBON DIOXIDE 14.6 mmol/L (21.0-32.0); CREATININE - SERUM 1.3 mg/dL (0.6-1.3); POTASSIUM - SERUM 3.1 mmol/L (3.5-5.1); PROTEIN - SERUM 6.9 g/dL (6.4-8.2)
[2017-11-22 07:34] LABS: LYMPHOCYTES 2 % (15-50); MONOCYTES 4 % (2-11); NEUTROPHILS 94 % (40-80); PLATELET ESTIMATE NORMAL
[2017-11-22 07:35] LABS: PLATELET MORPHOLOGY NORMAL PLT MORPH; POLYCHROMASIA OCC
[2017-11-22 08:20] VITALS: BP 129/81
[2017-11-22 08:41] LABS: FUNGUS MYCOLOGY CULTURE Final report (())
[2017-11-22 12:06] VITALS: BP 156/94
[2017-11-22 16:41] VITALS: BP 139/85
[2017-11-22 20:58] VITALS: BP 140/87
[2017-11-23 01:13] VITALS: BP 157/86
[2017-11-23 03:24] VITALS: BP 149/85
[2017-11-23 06:43] LABS: ANION GAP 16.7 mmol/L (8-16); BASOPHILS 0.1 % (0-2); BILIRUBIN - TOTAL 1.7 mg/dL (0.2-1.3); CALCIUM 10.3 mg/dL (8.5-10.1); CARBON DIOXIDE 13.5 mmol/L (21.0-32.0); CREATININE - SERUM 1.4 mg/dL (0.6-1.3); EOSINOPHILS 0 % (0-7); HEMATOCRIT 39.7 % (36.0-48.0); HEMOGLOBIN 13.6 g/dL (12-16); IMMATURE GRANULOCYTES 0.4 % (0-5); LYMPHOCYTES 2.4 % (15-50); MCH 29.8 pg (26.0-34.0); MCHC 34.3 g/dL (31.0-37.0); MCV 86.9 fL (80.0-100.0); MEAN PLATELET VOLUME 11.1 fL (7.4-10.4); MONOCYTES 10.4 % (2-11); NEUTROPHILS 86.7 % (40-80); PLATELET COUNT 197 10x3/uL (130-400); POTASSIUM - SERUM 3.2 mmol/L (3.5-5.1); PROTEIN - SERUM 6.7 g/dL (6.4-8.2); RBC 4.57 10x6/uL (4.00-5.40); RDW 17.5 % (11.5-14.5); WBC 29.1 10x3/uL (4.8-10.8)
[2017-11-23 06:44] LABS: ALBUMIN 2.8 g/dL (3.4-5.0)
[2017-11-23 07:37] LABS: INR 1.54 (0.85-1.17)
[2017-11-23 09:05] VITALS: BP 165/95
[2017-11-23 11:57] VITALS: BP 166/95
[2017-11-23 16:53] VITALS: BP 171/93
[2017-11-23 20:00] VITALS: BP 150/94
[2017-11-23 22:01] LABS: INR 1.68 (0.85-1.17); PROTIME 19.3 SECONDS (11.6-15.0)
[2017-11-24 05:31] LABS: ALBUMIN 3.2 g/dL (3.4-5.0); BILIRUBIN - TOTAL 1.7 mg/dL (0.2-1.3); CALCIUM 11.6 mg/dL (8.5-10.1); CARBON DIOXIDE 13.7 mmol/L (21.0-32.0); CREATININE - SERUM 1.5 mg/dL (0.6-1.3); MAGNESIUM - SERUM 2.6 mg/dL (1.8-2.4); PROTEIN - SERUM 6.6 g/dL (6.4-8.2)
[2017-11-24 05:33] LABS: HEMATOCRIT 39.1 % (36.0-48.0); HEMOGLOBIN 13.6 g/dL (12-16); LYMPHOCYTES 2.2 % (15-50); MCH 30.4 pg (26.0-34.0); MCHC 34.8 g/dL (31.0-37.0); MCV 87.5 fL (80.0-100.0); MEAN PLATELET VOLUME 11.2 fL (7.4-10.4); NEUTROPHILS 86.3 % (40-80); PLATELET COUNT 144 10x3/uL (130-400); RBC 4.47 10x6/uL (4.00-5.40); RDW 19.7 % (11.5-14.5)
[2017-11-24 05:55] LABS: INR 1.97 (0.85-1.17); PROTIME 21.8 SECONDS (11.6-15.0)
[2017-11-24 06:04] LABS: ANION GAP 15.9 mmol/L (8-16); POTASSIUM - SERUM 2.6 mmol/L (3.5-5.1)
[2017-11-24 09:05] VITALS: BP 149/90
[2017-11-24 12:48] VITALS: BP 155/96
[2017-11-24 16:24] VITALS: BP 129/85
[2017-11-24 19:19] VITALS: BP 174/98
[2017-11-24 23:41] VITALS: BP 175/92
[2017-11-25 03:42] VITALS: BP 132/68
[2017-11-25 05:24] LABS: INR 2.02 (0.85-1.17); PROTIME 22.3 SECONDS (11.6-15.0)
[2017-11-25 05:28] LABS: ALBUMIN 2.8 g/dL (3.4-5.0); BILIRUBIN - TOTAL 1.32 mg/dL (0.2-1.3); CALCIUM 10.6 mg/dL (8.5-10.1); CREATININE - SERUM 1.3 mg/dL (0.6-1.3); PROTEIN - SERUM 5.6 g/dL (6.4-8.2)
[2017-11-25 05:37] LABS: CARBON DIOXIDE 20.9 mmol/L (21.0-32.0); POTASSIUM - SERUM 2.9 mmol/L (3.5-5.1)
[2017-11-25 06:05] LABS: BASOPHILS 0.1 % (0-2); EOSINOPHILS 0 % (0-7); HEMATOCRIT 33.8 % (36.0-48.0); HEMOGLOBIN 11.7 g/dL (12-16); IMMATURE GRANULOCYTES 0.4 % (0-5); LYMPHOCYTES 6.7 % (15-50); MCH 29.9 pg (26.0-34.0); MCHC 34.6 g/dL (31.0-37.0); MCV 86.4 fL (80.0-100.0); MEAN PLATELET VOLUME 11.3 fL (7.4-10.4); MONOCYTES 12.7 % (2-11); NEUTROPHILS 80.1 % (40-80); PLATELET COUNT 81 10x3/uL (130-400); RBC 3.91 10x6/uL (4.00-5.40); RDW 18.4 % (11.5-14.5); WBC 24.1 10x3/uL (4.8-10.8)
[2017-11-25 08:43] VITALS: BP 129/81
[2017-11-25 11:48] VITALS: BP 133/78
[2017-11-25 19:40] VITALS: BP 119/71
[2017-11-25 23:35] VITALS: BP 136/70
[2017-11-26 04:12] VITALS: BP 145/79
[2017-11-26 06:32] LABS: INR 2.23 (0.85-1.17); PROTIME 24.1 SECONDS (11.6-15.0)
[2017-11-26 06:36] LABS: BASOPHILS 0.1 % (0-2); EOSINOPHILS 0.1 % (0-7); HEMATOCRIT 29.2 % (36.0-48.0); HEMOGLOBIN 9.9 g/dL (12-16); IMMATURE GRANULOCYTES 0.3 % (0-5); LYMPHOCYTES 10.1 % (15-50); MCH 29.7 pg (26.0-34.0); MCHC 33.9 g/dL (31.0-37.0); MCV 87.7 fL (80.0-100.0); MEAN PLATELET VOLUME 11.2 fL (7.4-10.4); MONOCYTES 13.9 % (2-11); NEUTROPHILS 75.5 % (40-80); PLATELET COUNT 57 10x3/uL (130-400); RBC 3.33 10x6/uL (4.00-5.40); RDW 19.3 % (11.5-14.5); WBC 15.5 10x3/uL (4.8-10.8)
[2017-11-26 06:57] LABS: ALBUMIN 2.5 g/dL (3.4-5.0); BILIRUBIN - TOTAL 1.17 mg/dL (0.2-1.3); CALCIUM 9.9 mg/dL (8.5-10.1); CREATININE - SERUM 1.2 mg/dL (0.6-1.3); PROTEIN - SERUM 4.8 g/dL (6.4-8.2); VANCOMYCIN - RANDOM 16.4 ug/mL (10.0-20.0)
[2017-11-26 07:05] LABS: ANION GAP 9.6 mmol/L (8-16); CARBON DIOXIDE 26.5 mmol/L (21.0-32.0); POTASSIUM - SERUM 3.1 mmol/L (3.5-5.1)
[2017-11-26 09:49] VITALS: BP 108/59
[2017-11-26 16:07] VITALS: BP 125/75
[2017-11-27 04:50] VITALS: BP 154/74
[2017-11-27 06:32] LABS: BASOPHILS 0.1 % (0-2); EOSINOPHILS 0.5 % (0-7); HEMATOCRIT 32.1 % (36.0-48.0); HEMOGLOBIN 10.8 g/dL (12-16); IMMATURE GRANULOCYTES 0.2 % (0-5); LYMPHOCYTES 10.6 % (15-50); MCH 30.1 pg (26.0-34.0); MCHC 33.6 g/dL (31.0-37.0); MCV 89.4 fL (80.0-100.0); MEAN PLATELET VOLUME 12.3 fL (7.4-10.4); MONOCYTES 10.6 % (2-11); PLATELET COUNT 53 10x3/uL (130-400); RBC 3.59 10x6/uL (4.00-5.40); RDW 19.7 % (11.5-14.5); WBC 16.9 10x3/uL (4.8-10.8)
[2017-11-27 06:48] LABS: INR 1.93 (0.85-1.17); PROTIME 21.5 SECONDS (11.6-15.0)
[2017-11-27 06:59] LABS: ALBUMIN 2.6 g/dL (3.4-5.0); BILIRUBIN - TOTAL 1.31 mg/dL (0.2-1.3); CALCIUM 9.5 mg/dL (8.5-10.1); CARBON DIOXIDE 28.1 mmol/L (21.0-32.0); CREATININE - SERUM 1.4 mg/dL (0.6-1.3); POTASSIUM - SERUM 3.1 mmol/L (3.5-5.1); PROTEIN - SERUM 5.1 g/dL (6.4-8.2)
[2017-11-27 09:27] VITALS: BP 115/70
[2017-11-27 14:07] VITALS: BP 104/74
[2017-11-27 17:01] VITALS: BP 159/72
[2017-11-27 22:37] VITALS: BP 118/69
[2017-11-28 04:06] VITALS: BP 111/77
[2017-11-28 06:50] LABS: INR 1.95 (0.85-1.17); PROTIME 21.7 SECONDS (11.6-15.0)
[2017-11-28 06:55] LABS: ALBUMIN 2.2 g/dL (3.4-5.0); BILIRUBIN - TOTAL 1.4 mg/dL (0.2-1.3); CALCIUM 8.4 mg/dL (8.5-10.1); CARBON DIOXIDE 26.3 mmol/L (21.0-32.0); CREATININE - SERUM 1.3 mg/dL (0.6-1.3); PROTEIN - SERUM 4.8 g/dL (6.4-8.2)
[2017-11-28 07:01] LABS: BASOPHILS 0.1 % (0-2); HEMATOCRIT 31.9 % (36.0-48.0); HEMOGLOBIN 10.4 g/dL (12-16); IMMATURE GRANULOCYTES 0.3 % (0-5); LYMPHOCYTES 6.6 % (15-50); MCH 29.7 pg (26.0-34.0); MCHC 32.6 g/dL (31.0-37.0); MCV 91.1 fL (80.0-100.0); MONOCYTES 13.7 % (2-11); NEUTROPHILS 78.3 % (40-80); RDW 19.4 % (11.5-14.5); WBC 15.9 10x3/uL (4.8-10.8)
[2017-11-28 07:03] LABS: ANION GAP 8.6 mmol/L (8-16); PLATELET COUNT 48 10x3/uL (130-400); POTASSIUM - SERUM 3.9 mmol/L (3.5-5.1)
[2017-11-28 07:32] LABS: PLATELET ESTIMATE DECREASED
[2017-11-28 08:25] VITALS: BP 110/75
[2017-11-28 11:37] VITALS: BP 127/79
[2017-11-28 16:05] VITALS: BP 118/67
[2017-11-28 22:41] VITALS: BP 110/70
[2017-11-29 03:58] VITALS: BP 109/76
[2017-11-29 06:37] LABS: INR 1.8 (0.85-1.17); PROTIME 20.3 SECONDS (11.6-15.0)
[2017-11-29 06:45] LABS: ALBUMIN 2.3 g/dL (3.4-5.0); ANION GAP 7.4 mmol/L (8-16); BILIRUBIN - TOTAL 1.8 mg/dL (0.2-1.3); CALCIUM 8.5 mg/dL (8.5-10.1); CARBON DIOXIDE 25.3 mmol/L (21.0-32.0); CREATININE - SERUM 1.3 mg/dL (0.6-1.3); PROTEIN - SERUM 5.2 g/dL (6.4-8.2)
[2017-11-29 06:46] LABS: POTASSIUM - SERUM 4.7 mmol/L (3.5-5.1)
[2017-11-29 07:23] LABS: BASOPHILS 0.1 % (0-2); EOSINOPHILS 2.6 % (0-7); HEMATOCRIT 34.7 % (36.0-48.0); HEMOGLOBIN 11.2 g/dL (12-16); IMMATURE GRANULOCYTES 0.2 % (0-5); LYMPHOCYTES 6.5 % (15-50); MCH 29.7 pg (26.0-34.0); MCHC 32.3 g/dL (31.0-37.0); MEAN PLATELET VOLUME 11.5 fL (7.4-10.4); MONOCYTES 12.8 % (2-11); NEUTROPHILS 77.8 % (40-80); PLATELET COUNT 51 10x3/uL (130-400); RBC 3.77 10x6/uL (4.00-5.40); RDW 18.3 % (11.5-14.5); WBC 18.4 10x3/uL (4.8-10.8)
[2017-11-29 07:25] LABS: APTT 34.9 SECONDS (22.8-39.4)
[2017-11-29 07:28] LABS: D-DIMER-QUANTITATIVE 2.46 ug/mLFEU (0.20-0.54)
[2017-11-29 07:29] LABS: MAGNESIUM - SERUM 2.3 mg/dL (1.8-2.4); PHOSPHOROUS 3.5 mg/dL (2.5-4.9)
[2017-11-29 08:12] VITALS: BP 107/70
[2017-11-29 12:43] VITALS: BP 126/70
[2017-11-29 16:03] VITALS: BP 119/71
[2017-11-29 21:29] VITALS: BP 111/70
[2017-11-29 23:47] VITALS: BP 124/74
[2017-11-30 04:22] VITALS: BP 148/64
[2017-11-30 10:08] VITALS: BP 89/59
[2017-11-30 11:03] LABS: BASOPHILS 0 % (0-2); EOSINOPHILS 2.4 % (0-7); HEMATOCRIT 34.6 % (36.0-48.0); HEMOGLOBIN 11.4 g/dL (12-16); IMMATURE GRANULOCYTES 0.5 % (0-5); LYMPHOCYTES 9.5 % (15-50); MCH 29.5 pg (26.0-34.0); MCHC 32.9 g/dL (31.0-37.0); MCV 89.6 fL (80.0-100.0); MONOCYTES 8.3 % (2-11); NEUTROPHILS 79.3 % (40-80); PLATELET COUNT 75 10x3/uL (130-400); RBC 3.86 10x6/uL (4.00-5.40); RDW 17.4 % (11.5-14.5); WBC 26.9 10x3/uL (4.8-10.8)
[2017-11-30 11:22] LABS: ALBUMIN 2.2 g/dL (3.4-5.0); ANION GAP 10.3 mmol/L (8-16); BILIRUBIN - TOTAL 2.02 mg/dL (0.2-1.3); CALCIUM 8.3 mg/dL (8.5-10.1); CARBON DIOXIDE 25.1 mmol/L (21.0-32.0); CREATININE - SERUM 1.3 mg/dL (0.6-1.3); POTASSIUM - SERUM 5.4 mmol/L (3.5-5.1); PROTEIN - SERUM 5.1 g/dL (6.4-8.2)
[2017-11-30 20:13] VITALS: BP 110/57
[2017-12-01 00:30] VITALS: BP 105/55
[2017-12-01 04:45] VITALS: BP 100/45
[2017-12-01 07:35] LABS: BASOPHILS 0 % (0-2); EOSINOPHILS 2.6 % (0-7); HEMATOCRIT 32.1 % (36.0-48.0); HEMOGLOBIN 10.6 g/dL (12-16); IMMATURE GRANULOCYTES 0.6 % (0-5); LYMPHOCYTES 6.3 % (15-50); MCH 29.4 pg (26.0-34.0); MCV 88.9 fL (80.0-100.0); MONOCYTES 11.6 % (2-11); NEUTROPHILS 78.9 % (40-80); PLATELET COUNT 75 10x3/uL (130-400); RBC 3.61 10x6/uL (4.00-5.40); RDW 17.4 % (11.5-14.5); WBC 24.4 10x3/uL (4.8-10.8)
[2017-12-01 07:59] LABS: ALBUMIN 1.8 g/dL (3.4-5.0); ANION GAP 9.6 mmol/L (8-16); BILIRUBIN - TOTAL 1.36 mg/dL (0.2-1.3); CALCIUM 7.9 mg/dL (8.5-10.1); CARBON DIOXIDE 23.9 mmol/L (21.0-32.0); CREATININE - SERUM 1.4 mg/dL (0.6-1.3); POTASSIUM - SERUM 5.5 mmol/L (3.5-5.1); PROTEIN - SERUM 4.4 g/dL (6.4-8.2)
[2017-12-01 08:57] VITALS: BP 94/64
[2017-12-01 13:15] VITALS: BP 87/64
[2017-12-01] MEDS ORDERED: CHRONULAC30 ML PO (14:16)
[2017-12-01] MEDS ORDERED: ALDACTONE100 MG PO (14:16)
[2017-12-01 16:56] VITALS: BP 101/66
[2017-12-07 06:14] LABS: FUNGUS MYCOLOGY CULTURE Final report (())
[2017-12-17 12:19] LABS: ACID FAST CULTURE Negative (()); ACID FAST SMEAR Negative (())
[2017-12-31 11:20] LABS: ACID FAST CULTURE Negative (()); ACID FAST SMEAR Negative (())
== END 2017-12-01 19:06 | disposition home health service (06) | DRG 441 ==
LOC: D.ER 21:10 → D.MS 10-22 01:34 → D.EDHOLD 10-22 01:34 → D.MS 10-22 01:59 → D.SDCHOLD 11-18 13:57 → D.MS 11-18 13:58
PROVIDERS: Emergency Medicine; Family Medicine; Internal Medicine Gastroenterology; Internal Medicine Nephrology; Internal Medicine Pulmonary Disease; Radiology Diagnostic Radiology; Radiology Vascular & Interventional Radiology; Specialist; Thoracic Surgery (Cardiothoracic Vascular Surgery)
PROC: 0W993ZZ Drainage of Right Pleural Cavity, Percutaneous Approach (ICD-10-PCS; 2017-10-22)
PROC: 0D9670Z Drainage of Stomach with Drainage Device, Via Natural or Artificial Opening (ICD-10-PCS; principal; 2017-10-22 15:55)
PROC: 0W9G3ZZ Drainage of Peritoneal Cavity, Percutaneous Approach (ICD-10-PCS; 2017-10-28)
PROC: 0W9G3ZZ Drainage of Peritoneal Cavity, Percutaneous Approach (ICD-10-PCS; 2017-11-02)
PROC: 0W993ZZ Drainage of Right Pleural Cavity, Percutaneous Approach (ICD-10-PCS; 2017-11-08)
PROC: 0DJ08ZZ Inspection of Upper Intestinal Tract, Via Natural or Artificial Opening Endoscopic (ICD-10-PCS; 2017-11-11)
PROC: 0DBN8ZZ Excision of Sigmoid Colon, Via Natural or Artificial Opening Endoscopic (ICD-10-PCS; 2017-11-11)
PROC: 0W9930Z Drainage of Right Pleural Cavity with Drainage Device, Percutaneous Approach (ICD-10-PCS; 2017-11-12)
PROC: 05HB33Z Insertion of Infusion Device into Right Basilic Vein, Percutaneous Approach (ICD-10-PCS; 2017-11-19)
PROC: B54MZZA Ultrasonography of Right Upper Extremity Veins, Guidance (ICD-10-PCS; 2017-11-19)
DX: K72.90 Hepatic failure, unspecified without coma (principal); J18.9 Pneumonia, unspecified organism; J96.21 Acute and chronic respiratory failure with hypoxia; I50.33 Acute on chronic diastolic (congestive) heart failure; J44.0 Chronic obstructive pulmonary disease with (acute) lower respiratory infection; M35.1 Other overlap syndromes; E72.20 Disorder of urea cycle metabolism, unspecified; J44.1 Chronic obstructive pulmonary disease with (acute) exacerbation; R18.8 Other ascites; J91.0 Malignant pleural effusion; E11.9 Type 2 diabetes mellitus without complications; Z79.84 Long term (current) use of oral hypoglycemic drugs; R32 Unspecified urinary incontinence; F17.210 Nicotine dependence, cigarettes, uncomplicated; F41.9 Anxiety disorder, unspecified; F32.9 Major depressive disorder, single episode, unspecified; I11.0 Hypertensive heart disease with heart failure; G47.33 Obstructive sleep apnea (adult) (pediatric); D64.9 Anemia, unspecified; K75.81 Nonalcoholic steatohepatitis (NASH); K74.60 Unspecified cirrhosis of liver; E66.01 Morbid (severe) obesity due to excess calories; Z68.37 Body mass index [BMI] 37.0-37.9, adult; M62.838 Other muscle spasm; Z91.14 Patient's other noncompliance with medication regimen; R04.0 Epistaxis; E87.6 Hypokalemia; F12.20 Cannabis dependence, uncomplicated; D69.6 Thrombocytopenia, unspecified; K21.0 Gastro-esophageal reflux disease with esophagitis; K29.70 Gastritis, unspecified, without bleeding; K29.80 Duodenitis without bleeding; K57.90 Diverticulosis of intestine, part unspecified, without perforation or abscess without bleeding; K63.5 Polyp of colon; K64.4 Residual hemorrhoidal skin tags; K64.8 Other hemorrhoids; K58.9 Irritable bowel syndrome, unspecified